=== PATIENT | male | born 1965 | race Two or more races ===

== ENCOUNTER 2016-07-17 11:28 | Inpatient (IN) | payer OTHER ==
[2016-07-17 13:55] VITALS: BMI 36.8
--- NOTE | 2016-07-17 14:39 | HP ---
CIWA Score - CIWA Score Nausea/Vomitin Muscle Tremors: 2 Anxiety: 3 Agitation: 3 Paroxysmal Sweats: 3 Orientation: 0-Oriented Tacttile Disturbances: 2-Mild Itch/Numbness/Burn Auditory Disturbances: 0-None Visual Disturbances: 0-None Headache: 1-Very Mild CIWA-Ar Total Score: 16 Admission ROS BHS - HPI Chief Complaint: I need help to stop alcohol and klonopin Allergies/Adverse Reactions: Allergies Allergy/AdvReac Type Severity Reaction Status Date / Time apple [Apple] Allergy Intermediate Rash Verified 07/14/12 17:01 fish derived Allergy Intermediate Rash Verified 07/14/12 17:01 No Known Drug Allergies Allergy Unknown Verified 07/14/12 21:21 History of Present Illness: 51 y/o m pt with a h/o chronic alcoholism and klonopin seeking detox. Exam Limitations: No Limitations - Ebola screening Have you traveled outside of the country in the last 21 days: No Have you had contact with anyone from an Ebola affected area: No Have you been sick,other than usual withdrawal symptoms: No - Review of Systems Constitutional: Malaise, Night Sweats, Changes in sleep EENT: reports: Dental Problems (edentulous) Respiratory: reports: No Symptoms reported Cardiac: reports: No Symptoms Reported GI: reports: Nausea, Indigestion : reports: Frequency Musculoskeletal: reports: Back Pain, Joint Pain (ankles), Muscle Pain Integumentary: reports: Other (stasis dermatitis rt lower extremity) Neuro: reports: Tremors Endocrine: reports: Increased Hunger, Increased Thirst, Increased Urine Hematology: reports: No Symptoms Reported Psychiatric: reports: Agitated, Anxious, Depressed Other Systems: Reviewed and Negative Patient History - Patient Medical History Hx Anemia: No Hx Asthma: Yes (PT IS ON MDI.) Hx Chronic Obstructive Pulmonary Disease (COPD): No Hx Cancer: No Hx Cardiac Disorders: No Hx Congestive Heart Failure: No Hx Hypertension: Yes (ON hctz 25mg/d) Hx Hypercholesterolemia: No Hx Pacemaker: No HX Cerebrovascular Accident: No Hx Seizures: No Hx Dementia: No Hx Diabetes: Yes (metformin 500mg /d) Hx Gastrointestinal Disorders: No Hx Liver Disease: No Hx Genitourinary Disorders: No Hx Sexually Transmitted Disorders: No Hx Renal Disease (ESRD): No Hx Thyroid Disease: No Hx Human Immunodeficiency Virus (HIV): No (negative 1 year ago) Hx Hepatitis C: No Hx Depression: Yes (celexa 20mg/d,abilify 30mg/d, hydroxyzine 25mg/d) Hx Suicide Attempt: No Hx Bipolar Disorder: No Hx Schizophrenia: No - Patient Surgical History Past Surgical History: No - PPD History Documented Results: Negative w/o proof Date: 07/16/12 PPD to be Administered?: Yes - Reproductive History Patient is a Female of Child Bearing Age (11 -55 yrs old): No - Smoking Cessation Smoking history: Current every day smoker Have you smoked in the past 12 months: Yes Aproximately how many cigarettes per day: 20 Cigars Per Day: 0 Hx Chewing Tobacco Use: No Initiated information on smoking cessation: Yes 'Breaking Loose' booklet given: 07/17/16 - Substance & Tx. History Hx Alcohol Use: Yes Substance Use Type: Cocaine, Tranquilizers Hx Substance Use Treatment: Yes - Substances Abused Alcohol Route: Oral Frequency: Daily Amount used: beer 40 oz x 3/d Age of first use: 17 Date of Last Use: 07/17/16 Benzodiazepine (Klonopin) Route: Oral Frequency: Daily Amount used: 4-6mg /d Age of first use: 50 Date of Last Use: 07/16/16 Family Disease History - Family Disease History Family Disease History: Other: Father (hiv ) Admission Physical Exam BHS - Vital Signs Vital Signs: Vital Signs - 24 hr 07/17/16 13:53 Temperature 96 F L Pulse Rate 77 Respiratory 20 Rate Blood Pressure 138/80 51 y/o m pt aox3 in nad ambulating cooperating with exam. - Physical General Appearance: Yes: Disheveled, Obese, Sweating, Anxious HEENTM: Yes: EOMI, Normal Voice, NICKY, Pharynx Normal, Other (edentulous) Respiratory: Yes: Chest Non-Tender, Lungs Clear, Normal Breath Sounds, No Respiratory Distress Neck: Yes: Supple, Trachea in good position Breast: Yes: Within Normal Limits Cardiology: Yes: Regular Rhythm, Regular Rate, S1, S2 Abdominal: Yes: Non Tender, Soft, Increased Bowel Sounds, Protuberent Back: Yes: Decreased Range of Motion Musculoskeletal: Yes: Back pain, Joint Stiffness, Muscle Pain Extremities: Yes: Tremors, Other (stasis dermatitis rt. + varicose veins) Neurological: Yes: emergency room orderly II-XII NML intact, Fully Oriented, Alert, Normal Response Integumentary: Yes: Moist Lymphatic: Yes: Within Normal Limits - Diagnostic (1) Alcohol dependence Current Visit: Yes Status: Chronic (2) DM Diabetes mellitus type 2 Current Visit: Yes Status: Chronic (3) Essential hypertension Current Visit: Yes Status: Chronic (4) Nicotine dependence Current Visit: Yes Status: Chronic (5) Obesity Current Visit: Yes Status: Chronic (6) mmtp Current Visit: No Status: Chronic (7) Benzodiazepine dependence, continuous Current Visit: Yes Status: Chronic (8) Varicose veins of legs Current Visit: Yes Status: Chronic (9) Venous stasis Current Visit: Yes Status: Chronic (10) Bipolar 1 disorder Current Visit: Yes Status: Chronic Cleared for Admission S - Detox or Rehab [facility] Level of Care: Medically Managed Detox Regimen/Protocol: Valium [facility] Breath Alcohol Content Breath Alcohol Content: 0.025 Urine Drug Screen - Results Drug Screen Negative: No Urine Drug Screen Results: KRISTINA-Cocaine, MTD-Methadone
[2016-07-17] MEDS ORDERED: hydrOXYzine PAMOATE 25 MG CAPSULE (FP) PO PRN (14:49)
[2016-07-17] MEDS ORDERED: MAG HYDROX/AL HYDROX/SIMETH 30 ML UNIT-DOSE CUP PO PRN (14:49)
[2016-07-17] MEDS ORDERED: MENTHOL/PHENOL 1 EACH UD MM PRN (14:49)
[2016-07-17] MEDS ORDERED: ACETAMINOPHEN 325 MG TABLET (FP) PO PRN (14:49)
[2016-07-17] MEDS ORDERED: diazePAM 5 MG TABLET PO PRN (14:49)
[2016-07-17] MEDS ORDERED: NICOTINE POLACRILEX 4 MG GUM BC PRN (14:49)
[2016-07-17] MEDS ORDERED: MAGNESIUM CITRATE 300 ML BOTTLE PO PRN (14:49)
[2016-07-17] MEDS ORDERED: IBUPROFEN 400 MG TABLET (FP) PO PRN (14:49)
[2016-07-17] MEDS ORDERED: MAGNESIUM HYDROX 2400MG/30ML ORAL SUSPENSION 30 ML CUP PO PRN (14:49)
[2016-07-17] MEDS ORDERED: LOPERAMIDE HCL 2 MG CAPSULE PO PRN (14:49)
[2016-07-17] MEDS ORDERED: P-EPHED 60MG/TRIPROLIDI 2.5MG TABLET PO PRN (14:49)
[2016-07-17] MEDS ORDERED: diphenhydrAMINE HCL 50 MG CAPSULE PO PRN (14:49)
[2016-07-17] MEDS ORDERED: guaiFENesin/D-METHORPHAN HB 10 ML UNIT-DOSE CUPS PO PRN (14:49)
[2016-07-17] MEDS ORDERED: ALBUTEROL SO4 6.7 GM HFA INHALER IH SCH (15:00)
[2016-07-17] MEDS ORDERED: ALBUTEROL SO4 6.7 GM HFA INHALER IH PRN (16:38)
[2016-07-17] MEDS ORDERED: diazePAM 5 MG TABLET PO ONE (17:00)
--- NOTE | 2016-07-17 18:13 | CONSULT ---
[facility] Psychiatric Consult - Data Date of interview: 07/17/16 Admission source: [facility] Identifying data: Readmission to [facility] for this 51 y/o male seeking detox treatmnet for opioid,alcohol and benzodiazepine (xanax) dependence.Patient is single,a father of one,domiciled,unemployed and supported on Welfare. Substance Abuse History: Smoking Cessation. Smoking history: Current every day smoker. Have you smoked in the past 12 months: Yes. Aproximately how many cigarettes per day: 20. Cigars Per Day: 0. Hx Chewing Tobacco Use: No. Initiated information on smoking cessation: Yes. 'Breaking Loose' booklet given : 07/17/16. - Substance & Tx. History. Hx Alcohol Use: Yes. Substance Use Type: Cocaine, Tranquilizers. Hx Substance Use Treatment: Yes. - Substances Abused. Alcohol. Route: Oral. Frequency: Daily. Amount used: beer 40 oz x 3/d. Age of first use: 17. Date of Last Use: 07/17/16. Benzodiazepine ( Klonopin). Route: Oral. Frequency: Daily. Amount used: 4-6mg /d. Age of first use: 50. Date of Last Use: 07/16/16. Confirmed by patient. Medical History: Bronchial asthma,diabetes mellitus,varicose veins,cellulitis, hypertension and arthritis. Psychiatric History: Patient admits to one psychiatric hospitalization at [facility] (2004).Diagnosed with " Bipolar Disorder and MDD ".Prescribed geodon 40 mg po bid + seroquel 100 mg/hs + ambien 10 mg/hs ( verified via survey of pharmacy claims of 07/08/16 @ [facility]) .Mr Lang indicates that he is currently on methadone maintenance (120 mg/day) at the [facility].He gets his outpatient psychiatric services at the [facility] in the [place].Patient reports history of one suicide attempt via hanging (1989). Physical/Sexual Abuse/Trauma History: Patient denies. Additional Comment: Urine Drug Screen Results: KRISTINA-Cocaine, MTD-Methadone.Noted. Mental Status Exam - Mental Status Exam Alert and Oriented to: Time, Place, Person Cognitive Function: Good Patient Appearance: Well Groomed (obese) Mood: Nervous, Withdrawn, Anxious Affect: Mood Congruent Patient Behavior: Fatigued, Appropriate, Cooperative Speech Pattern: Clear, Appropriate Voice Loudness: Normal Thought Process: Goal Oriented Thought Disorder: Not Present Hallucinations: Denies Suicidal Ideation: Denies Homicidal Ideation: Denies Insight/Judgement: Poor Sleep: Poorly, Difficulty falling asleep Appetite: Good Muscle strength/Tone: Normal Gait/Station: Normal Psychiatric Findings - Problem List ([place] 1, 2,3) (1) Alcohol dependence Current Visit: Yes Status: Acute (2) Benzodiazepine dependence, continuous Current Visit: Yes Status: Acute (3) Nicotine dependence Current Visit: Yes Status: Acute (4) Opioid dependence on agonist therapy Current Visit: Yes Status: Acute (5) Cocaine dependence Current Visit: Yes Status: Acute (6) Substance induced mood disorder Current Visit: Yes Status: Acute (7) Bipolar disorder Current Visit: Yes Status: Chronic Comment: History. (8) Essential hypertension Current Visit: Yes Status: Chronic (9) Obesity Current Visit: Yes Status: Chronic (10) Varicose veins of legs Current Visit: Yes Status: Chronic (11) Venous stasis Current Visit: Yes Status: Chronic (12) Asthma Current Visit: No Status: Active (13) Cellulitis Current Visit: Yes Status: Active (14) Insomnia Current Visit: Yes Status: Acute - Initial Treatment Plan Initial Treatment Plan: Psychoeducation.Detoxification.Medications : geodon 40 mg po bid + seroquel 50 mg po hs (reduced).Ambien not ordered (no justification) .Side effects/benefits discussed with patient.He agrees with this careplan.No scripts needed at discharge.Observation.
[2016-07-17] MEDS: THIAMINE HCL 100 MG TABLET (FP) PO SCH (22:16)
[2016-07-17] MEDS: diazePAM 5 MG TABLET PO SCH (22:16)
[2016-07-17] MEDS: QUEtiapine FUMARATE 50 MG TABLET PO SCH (22:17)
[2016-07-17] MEDS: ZIPRASIDONE 40 MG CAPSULE (FP) PO SCH (22:17)
[2016-07-18 03:03] LABS: URINE APPEARANCE CLEAR; URINE BILIRUBIN NEGATIVE (NEGATIVE); URINE BLOOD NEGATIVE (NEGATIVE); URINE COLOR DKYELLOW; URINE GLUCOSE (UA) NEGATIVE (NEGATIVE); URINE KETONE NEGATIVE (NEGATIVE); URINE LEUK ESTERASE NEGATIVE (NEGATIVE); URINE NITRITE NEGATIVE (NEGATIVE); URINE PROTEIN NEGATIVE (NEGATIVE); URINE UROBILINOGEN NEGATIVE E.U./dl (0.2-1.0)
[2016-07-18] MEDS: diazePAM 5 MG TABLET PO SCH ×3 (05:43→22:16)
[2016-07-18] MEDS ORDERED: METHADONE HCL 40 MG DISPERSABLE TABLET PO SCH (08:00)
[2016-07-18] MEDS: metFORMIN HCL 500 MG TABLET (FP) PO SCH (08:42)
[2016-07-18] MEDS: METHADONE HCL 40 MG DISPERSABLE TABLET PO SCH (08:42)
[2016-07-18 09:55] LABS: MCH 28.4 pg (25.7-33.7); MCHC 32.7 g/dl (32.0-35.9); MEAN CELL VOLUME 86.9 fl (80-96); MEAN PLT VOLUME 9.4 fl (7.5-11.1); PLATELET COUNT 246 K/MM3 (134-434); RDW 14.6 % (11.9-15.9); WHITE BLOOD COUNT 6.6 K/mm3 (4.0-10.0)
[2016-07-18] MEDS ORDERED: CITALOPRAM HYDROBROMIDE 20 MG TABLET (FP) PO SCH (10:00)
[2016-07-18 10:11] LABS: ALBUMIN 3.8 g/dl (3.4-5.0); ALK PHOS 78 U/L (45-117); ANION GAP 11 (8-16); BILIRUBIN,TOTAL 0.3 mg/dL (0.2-1.0); CALCIUM 9.4 mg/dL (8.5-10.1); CO2 27 mmol/L (21-32); COCKROFT - GAULT 170.27; CREATININE 0.7 mg/dL (0.7-1.3); GLUCOSE,RANDOM 75 mg/dL (74-106); SGOT/AST 31 U/L (15-37); SGPT/ALT 27 U/L (12-78); TOT PROT 7.9 g/dl (6.4-8.2)
[2016-07-18] MEDS: PRENATAL VITAMINS W/ FOLIC ACID TABLET (FP) PO SCH (10:18)
[2016-07-18] MEDS: NICOTINE 21 MG/24 HOURS TOPICAL PATCH TD SCH (10:18)
[2016-07-18] MEDS: ZIPRASIDONE 40 MG CAPSULE (FP) PO SCH ×2 (10:18→22:16)
[2016-07-18 11:52] LABS: HIV 1 & 2 AB NEGATIVE; HIV 1 AGp24 NEGATIVE
--- NOTE | 2016-07-18 12:34 | PN ---
[facility] CIWA - CIWA Score Nausea/Vomitin-No Nausea/No Vomiting Muscle Tremors: 4-Moderate,w/Arms Extend Anxiety: 2 Agitation: 2 Paroxysmal Sweats: 3 Orientation: 0-Oriented Tacttile Disturbances: 2-Mild Itch/Numbness/Burn Auditory Disturbances: 0-None Visual Disturbances: 3-Moderate Sensitivity Headache: 0-None Present CIWA-Ar Total Score: 16 S Progress Note (SOAP) Subjective: Tremors, Fatigue, Sweating. Objective: PT. A & O X 3, OBSERVED AMBULATING ON UNIT. 07/18/16 12:31 Vital Signs Temperature 97.4 F L 07/18/16 09:17 Pulse Rate 72 07/18/16 09:17 Respiratory Rate 18 07/18/16 09:17 Blood Pressure 135/77 07/18/16 09:17 O2 Sat by Pulse Oximetry (%) Laboratory Last Values WBC 6.6 K/mm3 (4.0-10.0) D 07/18/16 06:00 RBC 5.18 M/mm3 (4.00-5.60) 07/18/16 06:00 Hgb 14.7 GM/dL (11.7-16.9) 07/18/16 06:00 Hct 45.0 % (35.4-49) 07/18/16 06:00 MCV 86.9 fl (80-96) 07/18/16 06:00 MCHC 32.7 g/dl (32.0-35.9) 07/18/16 06:00 RDW 14.6 % (11.9-15.9) 07/18/16 06:00 Plt Count 246 K/MM3 (134-434) 07/18/16 06:00 MPV 9.4 fl (7.5-11.1) 07/18/16 06:00 Sodium 140 mmol/L (136-145) 07/18/16 06:00 Potassium 4.2 mmol/L (3.5-5.1) 07/18/16 06:00 Chloride 102 mmol/L (98-107) 07/18/16 06:00 Carbon Dioxide 27 mmol/L (21-32) 07/18/16 06:00 Anion Gap 11 (8-16) 07/18/16 06:00 BUN 5 mg/dL (7-18) L D 07/18/16 06:00 Creatinine 0.7 mg/dL (0.7-1.3) D 07/18/16 06:00 Creat Clearance w eGFR > 60 (>60) 07/18/16 06:00 POC Glucometer 104 UNITS (()) 07/18/16 05:42 Random Glucose 75 mg/dL (74-106) D 07/18/16 06:00 Calcium 9.4 mg/dL (8.5-10.1) 07/18/16 06:00 Total Bilirubin 0.3 mg/dL (0.2-1.0) 07/18/16 06:00 AST 31 U/L (15-37) 07/18/16 06:00 ALT 27 U/L (12-78) 07/18/16 06:00 Alkaline Phosphatase 78 U/L (45-117) 07/18/16 06:00 Total Protein 7.9 g/dl (6.4-8.2) 07/18/16 06:00 Albumin 3.8 g/dl (3.4-5.0) 07/18/16 06:00 Urine Color Dkyellow 07/17/16 22:57 Urine Appearance Clear 07/17/16 22:57 Urine pH 5.0 (5.0-8.0) 07/17/16 22:57 Ur Specific [place] 1.020 (1.005-1.025) 07/17/16 22:57 Urine Protein Negative (NEGATIVE) 07/17/16 22:57 Urine Glucose (UA) Negative (NEGATIVE) 07/17/16 22:57 Urine Ketones Negative (NEGATIVE) 07/17/16 22:57 Urine Blood Negative (NEGATIVE) 07/17/16 22:57 Urine Nitrite Negative (NEGATIVE) 07/17/16 22:57 Urine Bilirubin Negative (NEGATIVE) 07/17/16 22:57 Urine Urobilinogen Negative E.U./dl (0.2-1.0) 07/17/16 22:57 Ur Leukocyte Esterase Negative (NEGATIVE) 07/17/16 22:57 RPR Titer Nonreactive (NONREACTIVE) 07/18/16 06:00 HIV 1&2 Antibody Screen Negative 07/17/16 07:00 HIV P24 Antigen Negative 07/17/16 07:00 LABS NOTED. Assessment: 07/18/16 12:33 WITHDRAWAL SYMPTOMS. Plan: CONTINUE DETOX. ADVISED PATIENT TO FOLLOW-UP WITH [facility] AFTER DISCHARGE FROM DETOX FOR GENERAL MEDICAL ASSESSMENT AND FOR ABNORMAL ADMISSION LAB VALUES.
--- NOTE | 2016-07-18 12:50 | EKG ---
Test Reason : Blood Pressure : / mmHG Vent. Rate : 089 BPM Atrial Rate : 089 BPM P-R Int : 148 ms QRS Dur : 080 ms QT Int : 360 ms P-R-T Axes : 069 062 059 degrees QTc Int : 438 ms NORMAL SINUS RHYTHM NORMAL ECG NO PREVIOUS ECGS AVAILABLE Confirmed by YONIS SOTO MD ([id number]) on 07/18/2016 12:50:20 PM Referred By: Confirmed By:YONIS SOTO MD
[2016-07-18] MEDS: THIAMINE HCL 100 MG TABLET (FP) PO SCH (22:16)
[2016-07-18] MEDS: QUEtiapine FUMARATE 50 MG TABLET PO SCH (22:16)
[2016-07-19] MEDS: METHADONE HCL 40 MG DISPERSABLE TABLET PO SCH (06:02)
[2016-07-19] MEDS: metFORMIN HCL 500 MG TABLET (FP) PO SCH (06:40)
[2016-07-19] MEDS: ZIPRASIDONE 40 MG CAPSULE (FP) PO SCH ×2 (10:14→22:15)
[2016-07-19] MEDS: NICOTINE 21 MG/24 HOURS TOPICAL PATCH TD SCH (10:14)
[2016-07-19] MEDS: diazePAM 5 MG TABLET PO SCH ×2 (10:14→22:15)
[2016-07-19] MEDS: PRENATAL VITAMINS W/ FOLIC ACID TABLET (FP) PO SCH (10:14)
--- NOTE | 2016-07-19 13:00 | PN ---
S CIWA - CIWA Score Nausea/Vomitin Muscle Tremors: 4-Moderate,w/Arms Extend Anxiety: 3 Agitation: 2 Paroxysmal Sweats: 4-Forehead w/Sweat Beads Orientation: 0-Oriented Tacttile Disturbances: 0-None Auditory Disturbances: 2-Mild Harshness/Frighten Visual Disturbances: 2-Mild Sensitivity Headache: 0-None Present CIWA-Ar Total Score: 19 S Progress Note (SOAP) Subjective: Tremors, Sweating. Objective: PT. A & O X 3, OBSERVED AMBULATING ON UNIT WITH ASSISTANCE OF A CANE. 07/19/16 12:58 Vital Signs Temperature 99.1 F 07/19/16 10:05 Pulse Rate 74 07/19/16 10:05 Respiratory Rate 18 07/19/16 10:05 Blood Pressure 120/75 07/19/16 10:05 O2 Sat by Pulse Oximetry (%) Laboratory Last Values WBC 6.6 K/mm3 (4.0-10.0) D 07/18/16 06:00 RBC 5.18 M/mm3 (4.00-5.60) 07/18/16 06:00 Hgb 14.7 GM/dL (11.7-16.9) 07/18/16 06:00 Hct 45.0 % (35.4-49) 07/18/16 06:00 MCV 86.9 fl (80-96) 07/18/16 06:00 MCHC 32.7 g/dl (32.0-35.9) 07/18/16 06:00 RDW 14.6 % (11.9-15.9) 07/18/16 06:00 Plt Count 246 K/MM3 (134-434) 07/18/16 06:00 MPV 9.4 fl (7.5-11.1) 07/18/16 06:00 Sodium 140 mmol/L (136-145) 07/18/16 06:00 Potassium 4.2 mmol/L (3.5-5.1) 07/18/16 06:00 Chloride 102 mmol/L (98-107) 07/18/16 06:00 Carbon Dioxide 27 mmol/L (21-32) 07/18/16 06:00 Anion Gap 11 (8-16) 07/18/16 06:00 BUN 5 mg/dL (7-18) L D 07/18/16 06:00 Creatinine 0.7 mg/dL (0.7-1.3) D 07/18/16 06:00 Creat Clearance w eGFR > 60 (>60) 07/18/16 06:00 POC Glucometer 94 UNITS (()) 07/19/16 06:00 Random Glucose 75 mg/dL (74-106) D 07/18/16 06:00 Calcium 9.4 mg/dL (8.5-10.1) 07/18/16 06:00 Total Bilirubin 0.3 mg/dL (0.2-1.0) 07/18/16 06:00 AST 31 U/L (15-37) 07/18/16 06:00 ALT 27 U/L (12-78) 07/18/16 06:00 Alkaline Phosphatase 78 U/L (45-117) 07/18/16 06:00 Total Protein 7.9 g/dl (6.4-8.2) 07/18/16 06:00 Albumin 3.8 g/dl (3.4-5.0) 07/18/16 06:00 Urine Color Dkyellow 07/17/16 22:57 Urine Appearance Clear 07/17/16 22:57 Urine pH 5.0 (5.0-8.0) 07/17/16 22:57 Ur Specific [place] 1.020 (1.005-1.025) 07/17/16 22:57 Urine Protein Negative (NEGATIVE) 07/17/16 22:57 Urine Glucose (UA) Negative (NEGATIVE) 07/17/16 22:57 Urine Ketones Negative (NEGATIVE) 07/17/16 22:57 Urine Blood Negative (NEGATIVE) 07/17/16 22:57 Urine Nitrite Negative (NEGATIVE) 07/17/16 22:57 Urine Bilirubin Negative (NEGATIVE) 07/17/16 22:57 Urine Urobilinogen Negative E.U./dl (0.2-1.0) 07/17/16 22:57 Ur Leukocyte Esterase Negative (NEGATIVE) 07/17/16 22:57 RPR Titer Nonreactive (NONREACTIVE) 07/18/16 06:00 HIV 1&2 Antibody Screen Negative 07/17/16 07:00 HIV P24 Antigen Negative 07/17/16 07:00 LABS NOTED. Assessment: 07/19/16 12:59 WITHDRAWAL SYMPTOMS. Plan: CONTINUE DETOX. PATIENT ADVISED TO FOLLOW-UP WITH [facility]ESS OPERATOR AFTER DISCHARGE FROM DETOX FOR GENERAL MEDICAL ASSESSMENT AND FOR ABNORMAL ADMISSION LAB VALUES.
[2016-07-19] MEDS: THIAMINE HCL 100 MG TABLET (FP) PO SCH (22:15)
[2016-07-19] MEDS: QUEtiapine FUMARATE 50 MG TABLET PO SCH (22:15)
[2016-07-20] MEDS: METHADONE HCL 40 MG DISPERSABLE TABLET PO SCH (05:32)
[2016-07-20] MEDS: metFORMIN HCL 500 MG TABLET (FP) PO SCH (06:39)
[2016-07-20] MEDS: PRENATAL VITAMINS W/ FOLIC ACID TABLET (FP) PO SCH (10:18)
[2016-07-20] MEDS: diazePAM 5 MG TABLET PO SCH ×2 (10:18→22:02)
[2016-07-20] MEDS: ZIPRASIDONE 40 MG CAPSULE (FP) PO SCH ×2 (10:18→22:03)
[2016-07-20] MEDS: NICOTINE 21 MG/24 HOURS TOPICAL PATCH TD SCH (10:19)
--- NOTE | 2016-07-20 14:58 | PN ---
S Progress Note (SOAP) Subjective: Sweating, Interrupted sleep, Body aches. Objective: PT. A & O X 3, OBSERVED AMBULATING ON UNIT. 07/20/16 14:57 Vital Signs Temperature 97.3 F L 07/20/16 13:02 Pulse Rate 81 07/20/16 13:02 Respiratory Rate 20 07/20/16 13:02 Blood Pressure 117/69 07/20/16 13:02 O2 Sat by Pulse Oximetry (%) Laboratory Last Values WBC 6.6 K/mm3 (4.0-10.0) D 07/18/16 06:00 RBC 5.18 M/mm3 (4.00-5.60) 07/18/16 06:00 Hgb 14.7 GM/dL (11.7-16.9) 07/18/16 06:00 Hct 45.0 % (35.4-49) 07/18/16 06:00 MCV 86.9 fl (80-96) 07/18/16 06:00 MCHC 32.7 g/dl (32.0-35.9) 07/18/16 06:00 RDW 14.6 % (11.9-15.9) 07/18/16 06:00 Plt Count 246 K/MM3 (134-434) 07/18/16 06:00 MPV 9.4 fl (7.5-11.1) 07/18/16 06:00 Sodium 140 mmol/L (136-145) 07/18/16 06:00 Potassium 4.2 mmol/L (3.5-5.1) 07/18/16 06:00 Chloride 102 mmol/L (98-107) 07/18/16 06:00 Carbon Dioxide 27 mmol/L (21-32) 07/18/16 06:00 Anion Gap 11 (8-16) 07/18/16 06:00 BUN 5 mg/dL (7-18) L D 07/18/16 06:00 Creatinine 0.7 mg/dL (0.7-1.3) D 07/18/16 06:00 Creat Clearance w eGFR > 60 (>60) 07/18/16 06:00 POC Glucometer 91 UNITS (()) 07/20/16 05:31 Random Glucose 75 mg/dL (74-106) D 07/18/16 06:00 Calcium 9.4 mg/dL (8.5-10.1) 07/18/16 06:00 Total Bilirubin 0.3 mg/dL (0.2-1.0) 07/18/16 06:00 AST 31 U/L (15-37) 07/18/16 06:00 ALT 27 U/L (12-78) 07/18/16 06:00 Alkaline Phosphatase 78 U/L (45-117) 07/18/16 06:00 Total Protein 7.9 g/dl (6.4-8.2) 07/18/16 06:00 Albumin 3.8 g/dl (3.4-5.0) 07/18/16 06:00 Urine Color Dkyellow 07/17/16 22:57 Urine Appearance Clear 07/17/16 22:57 Urine pH 5.0 (5.0-8.0) 07/17/16 22:57 Ur Specific [place] 1.020 (1.005-1.025) 07/17/16 22:57 Urine Protein Negative (NEGATIVE) 07/17/16 22:57 Urine Glucose (UA) Negative (NEGATIVE) 07/17/16 22:57 Urine Ketones Negative (NEGATIVE) 07/17/16 22:57 Urine Blood Negative (NEGATIVE) 07/17/16 22:57 Urine Nitrite Negative (NEGATIVE) 07/17/16 22:57 Urine Bilirubin Negative (NEGATIVE) 07/17/16 22:57 Urine Urobilinogen Negative E.U./dl (0.2-1.0) 07/17/16 22:57 Ur Leukocyte Esterase Negative (NEGATIVE) 07/17/16 22:57 RPR Titer Nonreactive (NONREACTIVE) 07/18/16 06:00 HIV 1&2 Antibody Screen Negative 07/17/16 07:00 HIV P24 Antigen Negative 07/17/16 07:00 LABS NOTED. Assessment: 07/20/16 14:58 WITHDRAWAL SYMPTOMS. Plan: CONTINUE DETOX. ADVISED PATIENT TO FOLLOW-UP WITH [facility] AFTER DISCHARGE FROM DETOX FOR GENERAL MEDICAL ASSESSMENT AND FOR ABNORMAL ADMISSION LAB VALUES.
[2016-07-20] MEDS: THIAMINE HCL 100 MG TABLET (FP) PO SCH (22:03)
[2016-07-20] MEDS: QUEtiapine FUMARATE 50 MG TABLET PO SCH (22:03)
[2016-07-21] MEDS: METHADONE HCL 40 MG DISPERSABLE TABLET PO SCH (05:11)
[2016-07-21] MEDS: metFORMIN HCL 500 MG TABLET (FP) PO SCH (06:00)
[2016-07-21 06:30] VITALS: BP 122/73; PULSE 91; TEMP 96.5
[2016-07-21] MEDS ORDERED: diazePAM 5 MG TABLET PO SCH (10:00)
--- NOTE | 2016-07-21 15:32 | DS ---
[facility] Detox Discharge Summary Admission Date: 07/17/16 Discharge Date: 07/21/16 - History Present History: Alcohol Dependence, Sedative Dependence Additional Comments: ADVISED PATIENT TO FOLLOW-UP WITH [facility] AFTER DISCHARGE FROM DETOX FOR GENERAL MEDICAL ASSESSMENT AND FOR ABNORMAL ADMISSION LAB VALUES. Pertinent Past History: Asthma, HTN, DM, MMTP, Depression. - Physical Exam Results Vital Signs: Vital Signs Temperature 96.5 F L 07/21/16 06:30 Pulse Rate 91 H 07/21/16 06:30 Respiratory Rate 18 07/21/16 06:30 Blood Pressure 122/73 07/21/16 06:30 O2 Sat by Pulse Oximetry (%) Pertinent Admission Physical Exam Findings: WITHDRAWAL SYMPTOMS. Laboratory Last Values WBC 6.6 K/mm3 (4.0-10.0) D 07/18/16 06:00 RBC 5.18 M/mm3 (4.00-5.60) 07/18/16 06:00 Hgb 14.7 GM/dL (11.7-16.9) 07/18/16 06:00 Hct 45.0 % (35.4-49) 07/18/16 06:00 MCV 86.9 fl (80-96) 07/18/16 06:00 MCHC 32.7 g/dl (32.0-35.9) 07/18/16 06:00 RDW 14.6 % (11.9-15.9) 07/18/16 06:00 Plt Count 246 K/MM3 (134-434) 07/18/16 06:00 MPV 9.4 fl (7.5-11.1) 07/18/16 06:00 Sodium 140 mmol/L (136-145) 07/18/16 06:00 Potassium 4.2 mmol/L (3.5-5.1) 07/18/16 06:00 Chloride 102 mmol/L (98-107) 07/18/16 06:00 Carbon Dioxide 27 mmol/L (21-32) 07/18/16 06:00 Anion Gap 11 (8-16) 07/18/16 06:00 BUN 5 mg/dL (7-18) L D 07/18/16 06:00 Creatinine 0.7 mg/dL (0.7-1.3) D 07/18/16 06:00 Creat Clearance w eGFR > 60 (>60) 07/18/16 06:00 POC Glucometer 100 UNITS (()) 07/21/16 05:59 Random Glucose 75 mg/dL (74-106) D 07/18/16 06:00 Calcium 9.4 mg/dL (8.5-10.1) 07/18/16 06:00 Total Bilirubin 0.3 mg/dL (0.2-1.0) 07/18/16 06:00 AST 31 U/L (15-37) 07/18/16 06:00 ALT 27 U/L (12-78) 07/18/16 06:00 Alkaline Phosphatase 78 U/L (45-117) 07/18/16 06:00 Total Protein 7.9 g/dl (6.4-8.2) 07/18/16 06:00 Albumin 3.8 g/dl (3.4-5.0) 07/18/16 06:00 Urine Color Dkyellow 07/17/16 22:57 Urine Appearance Clear 07/17/16 22:57 Urine pH 5.0 (5.0-8.0) 07/17/16 22:57 Ur Specific [place] 1.020 (1.005-1.025) 07/17/16 22:57 Urine Protein Negative (NEGATIVE) 07/17/16 22:57 Urine Glucose (UA) Negative (NEGATIVE) 07/17/16 22:57 Urine Ketones Negative (NEGATIVE) 07/17/16 22:57 Urine Blood Negative (NEGATIVE) 07/17/16 22:57 Urine Nitrite Negative (NEGATIVE) 07/17/16 22:57 Urine Bilirubin Negative (NEGATIVE) 07/17/16 22:57 Urine Urobilinogen Negative E.U./dl (0.2-1.0) 07/17/16 22:57 Ur Leukocyte Esterase Negative (NEGATIVE) 07/17/16 22:57 RPR Titer Nonreactive (NONREACTIVE) 07/18/16 06:00 HIV 1&2 Antibody Screen Negative 07/17/16 07:00 HIV P24 Antigen Negative 07/17/16 07:00 LABS NOTED. - Treatment Hospital Course: Detox Protocol Followed, Detoxed Safely, Responded well, Discharged Condition Good Patient has Accepted a Rehab Referral to: YES - PT. WILL PURSUE ADMISSION AT [facility] AT A LATER DATE. - Medication Discharge Medications: Ambulatory Orders Albuterol Sulfate Inhaler - [Ventolin Hfa *Inhaler*] 2 inh IH Q4H PRN 07/14/12 Quetiapine Fumarate [Seroquel] 100 tab PO HS 07/17/16 Ziprasidone [Geodon] 40 mg PO BID 07/17/16 - Diagnosis (1) Asthma Status: Chronic (2) Insomnia Status: Chronic Qualifiers: Insomnia type: unspecified Qualified Code(s): G47.00 - Insomnia, unspecified (3) Nicotine dependence Status: Chronic (4) Opioid dependence on agonist therapy Status: Acute (5) Substance induced mood disorder Status: Acute (6) Bipolar disorder Status: Chronic Qualifiers: Active/Remission status: remission status unspecified Qualified Code (s): F31.9 - Bipolar disorder, unspecified (7) DM Diabetes mellitus type 2 Status: Chronic (8) Essential hypertension Status: Chronic (9) mmtp Status: Chronic (10) Obesity Status: Chronic (11) Varicose veins of legs Status: Chronic (12) Venous stasis Status: Chronic (13) Alcohol dependence with uncomplicated withdrawal Status: Acute - AMA Did Patient Leave Against Medical Advice: No
== END 2016-07-21 08:54 | disposition home or self-care (01) | DRG 773 ==
LOC: YASAS 11:28 → Y3N 16:36
PROVIDERS: ADMIT Internal Medicine Addiction Medicine; ATTEND Internal Medicine Addiction Medicine
PROC: HZ2ZZZZ Detoxification Services for Substance Abuse Treatment (ICD-10-PCS; principal; 2016-07-21)
DX: F11.20 Opioid dependence, uncomplicated (principal); F13.230 Sedative, hypnotic or anxiolytic dependence with withdrawal, uncomplicated; F19.24 Other psychoactive substance dependence with psychoactive substance-induced mood disorder; F31.9 Bipolar disorder, unspecified; F17.210 Nicotine dependence, cigarettes, uncomplicated; G47.00 Insomnia, unspecified; J45.20 Mild intermittent asthma, uncomplicated; E11.9 Type 2 diabetes mellitus without complications; Z79.84 Long term (current) use of oral hypoglycemic drugs; I83.10 Varicose veins of unspecified lower extremity with inflammation; E66.09 Other obesity due to excess calories; Z68.36 Body mass index [BMI] 36.0-36.9, adult
CPT/HCPCS: 36415; 80053; 81003; 85027; 86593; 87389; 93005; 93010

== ENCOUNTER 2020-04-18 14:48 | Inpatient (IN) | payer OTHER ==
[2020-04-18] MEDS ORDERED: SODIUM CHLORIDE 1,000 ML IV SCH (16:15)
[2020-04-18 16:46] LABS: BASO % 1.2 % (0-2.0); EOS % 4.1 % (0-4.5); HEMATOCRIT 39.1 % (35.4-49); HEMOGLOBIN 12.9 GM/dL (11.7-16.9); LYMPH % 51.8 % (8-40); MCH 28.1 pg (25.7-33.7); MEAN CELL VOLUME 85.3 fl (80-96); MEAN PLT VOLUME 8.2 fl (7.5-11.1); MONO % 11.3 % (3.8-10.2); NEUT % 31.6 % (42.8-82.8); PLATELET COUNT 265 K/MM3 (134-434); RBC 4.58 M/mm3 (4.00-5.60); RDW 14.7 % (11.9-15.9)
[2020-04-18 16:53] LABS: INR 0.99 (0.83-1.09)
[2020-04-18 17:05] LABS: CHLORIDE 107 mmol/L (98-107); SODIUM 141 mmol/L (136-145)
[2020-04-18] MEDS ORDERED: ASPIRIN 325 MG TABLET PO ONE (17:05)
[2020-04-18 17:10] LABS: ALBUMIN 3.4 g/dl (3.4-5.0); ANION GAP 2 MMOL/L (8-16); BLOOD UREA NITROGEN 11.4 mg/dL (7-18); CALCIUM 8.7 mg/dL (8.5-10.1); CO2 32 mmol/L (21-32); GLUCOSE,RANDOM 84 mg/dL (74-106)
[2020-04-18 17:13] LABS: CHOLESTEROL 161 mg/dL (50-200); CREATININE 0.7 mg/dL (0.55-1.3); SGOT/AST 16 U/L (15-37); SGPT/ALT 17 U/L (13-61)
[2020-04-18 17:14] LABS: LDL CHOLESTEROL (ONLY SJRH) 89 mg/dL (5-100); TRIGLYCERIDES 221 mg/dL (0-150)
[2020-04-18 17:15] LABS: BILIRUBIN,TOTAL 0.2 mg/dL (0.2-1); TOT PROT 6.8 g/dl (6.4-8.2)
[2020-04-18 17:16] LABS: ALK PHOS 58 U/L (45-117); HDL CHOLESTEROL 48 mg/dL (40-60)
[2020-04-18] MEDS ORDERED: ASPIRIN 325 MG ENTERIC COATED TABLET (FP) ONE (18:09)
[2020-04-18] MEDS ORDERED: ALBUTEROL SO4 HFA INHALER IH PRN (19:05)
[2020-04-18] MEDS ORDERED: ATORVASTATIN CA 80 MG TABLET (FP) PO SCH (22:00)
[2020-04-18] MEDS ORDERED: ZIPRASIDONE 20 MG CAPSULE PO SCH (22:00)
[2020-04-18] MEDS ORDERED: MONTELUKAST NA 10 MG TABLET PO SCH (22:00)
[2020-04-18] MEDS ORDERED: QUEtiapine FUMARATE 100 MG TABLET (FP) PO SCH (22:00)
[2020-04-18] MEDS ORDERED: ATORVASTATIN CA 80 MG TABLET (FP) ONE (22:58)
[2020-04-18] MEDS ORDERED: QUEtiapine FUMARATE 100 MG TABLET (FP) ONE (22:59)
[2020-04-18] MEDS ORDERED: MONTELUKAST NA 10 MG TABLET ONE (22:59)
[2020-04-19 04:07] VITALS: BMI 31.2
[2020-04-19] MEDS ORDERED: METHADONE HCL 40 MG DISPERSABLE TABLET PO ONE (08:06)
[2020-04-19] MEDS ORDERED: PT OWN MED DRAWER 7, Y5N ONE (09:19)
[2020-04-19] MEDS ORDERED: ASPIRIN 81 MG CHEWABLE TABLETS PO SCH (10:00)
[2020-04-19] MEDS ORDERED: ENOXAPARIN NA (PORCINE) 40 MG/0.4 ML DISP.SYRIN SQ SCH (10:00)
[2020-04-19 14:28] LABS: EPI CELLS 8 /uL (0-25.1); HYALINE CASTS 1 /uL (0-3.1); URINE APPEARANCE CLOUDY; URINE BACTERIA 48 /uL (0-1359); URINE BILIRUBIN NEGATIVE (NEGATIVE); URINE COLOR YELLOW; URINE GLUCOSE (UA) NEGATIVE (NEGATIVE); URINE KETONE NEGATIVE (NEGATIVE); URINE LEUK ESTERASE NEGATIVE (NEGATIVE); URINE NITRITE NEGATIVE (NEGATIVE); URINE PROTEIN NEGATIVE (NEGATIVE); URINE RBC 53 /uL (0-23.9); URINE UROBILINOGEN 0.2 mg/dL (0.2-1.0); URINE WBC 2 /uL (0-25.8)
[2020-04-19 15:09] LABS: URINE AMPHETAMINES NEGATIVE ng/ml (CUTOFF=500); URINE BARBITURATES NEGATIVE ng/ml (CUTOFF=200)
[2020-04-19 15:10] LABS: OPIATES, URI NEGATIVE ng/ml (CUTOFF=300); PHENCYCLIDINE,URINE NEGATIVE ng/ml (CUTOFF=25)
[2020-04-19 15:20] VITALS: BP 110/68; PULSE 66; TEMP 98.3
[2020-04-19 15:25] LABS: COCAINE, UR POSITIVE ng/ml (CUTOFF=300); URINE BENZODIAZEPINES POSITIVE ng/ml (CUTOFF=200)
[2020-04-19 15:26] LABS: METHADONE, UR POSITIVE ng/ml (CUTOFF=300)
[2020-04-20] MEDS ORDERED: METHADONE HCL 40 MG DISPERSABLE TABLET PO SCH (06:00)
== END 2020-04-19 16:51 | disposition other institution (70) | DRG 775 ==
LOC: JER 14:48 → JERBED 20:42 → J4W 04-19 00:07
PROVIDERS: ADMIT Internal Medicine; ATTEND Nurse Practitioner Acute Care
DX: F13.10 Sedative, hypnotic or anxiolytic abuse, uncomplicated (principal); F10.10 Alcohol abuse, uncomplicated; F32.9 Major depressive disorder, single episode, unspecified; F17.200 Nicotine dependence, unspecified, uncomplicated
CPT/HCPCS: 36415; 70450-TC; 70551-TC; 80053; 80061; 80307; 81003; 82550; 82962; 83721; 84484; 85025; 85610; 85730; 86850; 86900; 86901; 93005; 93010; 93880-TC; 97116-GP; 97161-GP; 99285-25; C9803; U0003

== ENCOUNTER 2020-04-19 17:04 | Inpatient (IN) | payer OTHER ==
[2020-04-19] MEDS ORDERED: LOPERAMIDE HCL 2 MG CAPSULE PO PRN ×2 (17:45→18:53)
[2020-04-19] MEDS ORDERED: guaiFENesin 200 MG/10 ML 10 ML UNIT-DOSE CUPS PO PRN ×2 (17:45→18:53)
[2020-04-19] MEDS ORDERED: ACETAMINOPHEN 325 MG TABLET (FP) PO PRN ×2 (17:45→18:53)
[2020-04-19] MEDS ORDERED: MAG HYDROX/AL HYDROX/SIMETH 30 ML UNIT-DOSE CUP PO PRN ×2 (17:45→18:53)
[2020-04-19] MEDS ORDERED: NICOTINE POLACRILEX 4 MG GUM BC PRN (17:45)
[2020-04-19] MEDS ORDERED: MAGNESIUM CITRATE 300 ML BOTTLE PO PRN ×2 (17:45→18:53)
[2020-04-19] MEDS ORDERED: P-EPHED 60MG/TRIPROLIDI 2.5MG TABLET PO PRN ×2 (17:45→18:53)
[2020-04-19] MEDS ORDERED: MAGNESIUM HYDROX 2400MG/30ML ORAL SUSPENSION 30 ML CUP PO PRN ×2 (17:45→18:53)
[2020-04-19] MEDS ORDERED: IBUPROFEN 400 MG TABLET (FP) PO PRN ×2 (17:45→18:53)
[2020-04-19] MEDS ORDERED: ALBUTEROL SO4 HFA INHALER IH PRN (17:49)
[2020-04-19 18:19] VITALS: BMI 32.1
[2020-04-19] MEDS ORDERED: NICOTINE POLACRILEX 2 MG GUM BC PRN (18:53)
[2020-04-19] MEDS: NICOTINE 21 MG/24 HOURS TOPICAL PATCH TD SCH (21:40)
[2020-04-19] MEDS ORDERED: ATORVASTATIN CA 40 MG TABLET (FP) ONE (21:52)
[2020-04-19] MEDS: MELATONIN 5 MG TABLETS PO SCH (21:53)
[2020-04-19] MEDS: THIAMINE HCL 100 MG TABLET (FP) PO SCH (21:53)
[2020-04-19] MEDS: ATORVASTATIN CA 80 MG TABLET (FP) PO SCH (21:53)
[2020-04-19] MEDS ORDERED: MELATONIN 5 MG TABLETS PO SCH (22:00)
[2020-04-19] MEDS ORDERED: QUEtiapine FUMARATE 100 MG TABLET (FP) PO SCH (22:00)
[2020-04-19] MEDS ORDERED: THIAMINE HCL 100 MG TABLET (FP) PO SCH (22:00)
[2020-04-19] MEDS: QUEtiapine FUMARATE 100 MG TABLET (FP) PO SCH (22:36)
[2020-04-19] MEDS: ZIPRASIDONE 20 MG CAPSULE PO SCH (23:45)
[2020-04-20] MEDS: METHADONE HCL 40 MG DISPERSABLE TABLET PO SCH (06:01)
[2020-04-20] MEDS ORDERED: PRENATAL VITAMINS W/ FOLIC ACID TABLET (FP) PO SCH (10:00)
[2020-04-20] MEDS ORDERED: NICOTINE 21 MG/24 HOURS TOPICAL PATCH TD SCH (10:00)
[2020-04-20] MEDS: PRENATAL VITAMINS W/ FOLIC ACID TABLET (FP) PO SCH (10:03)
[2020-04-20] MEDS: ZIPRASIDONE 20 MG CAPSULE PO SCH ×2 (10:03→21:07)
[2020-04-20] MEDS: MONTELUKAST NA 10 MG TABLET PO SCH (10:03)
[2020-04-20] MEDS: NICOTINE 21 MG/24 HOURS TOPICAL PATCH TD SCH (10:03)
[2020-04-20] MEDS: ASPIRIN 81 MG CHEWABLE TABLETS PO SCH (10:03)
[2020-04-20] MEDS ORDERED: PNEUMOCOCCAL 23 VACCINE 0.5 ML VIAL IM ONE (12:00)
[2020-04-20] MEDS ORDERED: FLU VACCINE (FLULAVAL) PF 60 MCG/0.5 ML SYRINGE 2020-2021 IM ONE (12:00)
[2020-04-20] MEDS ORDERED: PNEUMOC 13-VAL CONJ-DIP CRM/PF 0.5 ML DISP.SYRIN IM ONE (12:00)
[2020-04-20] MEDS ORDERED: PT OWN MED DRAWER 7, Y5N ONE (15:49)
[2020-04-20] MEDS: ATORVASTATIN CA 80 MG TABLET (FP) PO SCH (21:06)
[2020-04-20] MEDS: QUEtiapine FUMARATE 100 MG TABLET (FP) PO SCH (21:06)
[2020-04-20] MEDS: MELATONIN 5 MG TABLETS PO SCH (21:06)
[2020-04-20] MEDS: THIAMINE HCL 100 MG TABLET (FP) PO SCH (21:07)
[2020-04-20] MEDS ORDERED: QUEtiapine FUMARATE 100 MG TABLET (FP) PO SCH (22:00)
[2020-04-21] MEDS: METHADONE HCL 40 MG DISPERSABLE TABLET PO SCH (06:14)
[2020-04-21] MEDS: ZIPRASIDONE 20 MG CAPSULE PO SCH ×2 (11:45→22:00)
[2020-04-21] MEDS: NICOTINE 21 MG/24 HOURS TOPICAL PATCH TD SCH (11:45)
[2020-04-21] MEDS: ASPIRIN 81 MG CHEWABLE TABLETS PO SCH (11:45)
[2020-04-21] MEDS: PRENATAL VITAMINS W/ FOLIC ACID TABLET (FP) PO SCH (11:45)
[2020-04-21] MEDS: MONTELUKAST NA 10 MG TABLET PO SCH (11:46)
[2020-04-21] MEDS ORDERED: ATORVASTATIN CA 40 MG TABLET (FP) ONE (21:00)
[2020-04-21] MEDS: QUEtiapine FUMARATE 100 MG TABLET (FP) PO SCH (21:59)
[2020-04-21] MEDS: ATORVASTATIN CA 80 MG TABLET (FP) PO SCH (21:59)
[2020-04-21] MEDS: MELATONIN 5 MG TABLETS PO SCH (21:59)
[2020-04-21] MEDS: THIAMINE HCL 100 MG TABLET (FP) PO SCH (22:00)
[2020-04-22] MEDS: METHADONE HCL 40 MG DISPERSABLE TABLET PO SCH (05:50)
[2020-04-22] MEDS: NICOTINE 21 MG/24 HOURS TOPICAL PATCH TD SCH (10:00)
[2020-04-22] MEDS: MONTELUKAST NA 10 MG TABLET PO SCH (10:00)
[2020-04-22] MEDS: ASPIRIN 81 MG CHEWABLE TABLETS PO SCH (10:00)
[2020-04-22] MEDS: ZIPRASIDONE 20 MG CAPSULE PO SCH ×2 (10:00→21:10)
[2020-04-22] MEDS: PRENATAL VITAMINS W/ FOLIC ACID TABLET (FP) PO SCH (10:00)
[2020-04-22] MEDS ORDERED: ATORVASTATIN CA 40 MG TABLET (FP) ONE (19:21)
[2020-04-22] MEDS ORDERED: PT OWN MED DRAWER 7, Y5N ONE (19:22)
[2020-04-22] MEDS: MELATONIN 5 MG TABLETS PO SCH (21:10)
[2020-04-22] MEDS: THIAMINE HCL 100 MG TABLET (FP) PO SCH (21:10)
[2020-04-22] MEDS: QUEtiapine FUMARATE 100 MG TABLET (FP) PO SCH (21:10)
[2020-04-22] MEDS: ATORVASTATIN CA 80 MG TABLET (FP) PO SCH (21:11)
[2020-04-23] MEDS: METHADONE HCL 40 MG DISPERSABLE TABLET PO SCH (06:06)
[2020-04-23] MEDS: MONTELUKAST NA 10 MG TABLET PO SCH (09:53)
[2020-04-23] MEDS: PRENATAL VITAMINS W/ FOLIC ACID TABLET (FP) PO SCH (09:53)
[2020-04-23] MEDS: ASPIRIN 81 MG CHEWABLE TABLETS PO SCH (09:53)
[2020-04-23] MEDS: NICOTINE 21 MG/24 HOURS TOPICAL PATCH TD SCH (09:54)
[2020-04-23] MEDS: ZIPRASIDONE 20 MG CAPSULE PO SCH ×2 (09:54→21:52)
[2020-04-23] MEDS ORDERED: ATORVASTATIN CA 40 MG TABLET (FP) ONE (19:20)
[2020-04-23] MEDS: QUEtiapine FUMARATE 100 MG TABLET (FP) PO SCH (21:50)
[2020-04-23] MEDS: THIAMINE HCL 100 MG TABLET (FP) PO SCH (21:50)
[2020-04-23] MEDS: MELATONIN 5 MG TABLETS PO SCH (21:50)
[2020-04-23] MEDS ORDERED: QUEtiapine FUMARATE 50 MG TABLET ONE (21:51)
[2020-04-23] MEDS: ATORVASTATIN CA 80 MG TABLET (FP) PO SCH (21:52)
[2020-04-24] MEDS: METHADONE HCL 40 MG DISPERSABLE TABLET PO SCH (06:14)
[2020-04-24] MEDS: NICOTINE 21 MG/24 HOURS TOPICAL PATCH TD SCH (09:49)
[2020-04-24] MEDS: ZIPRASIDONE 20 MG CAPSULE PO SCH ×2 (09:49→21:27)
[2020-04-24] MEDS: PRENATAL VITAMINS W/ FOLIC ACID TABLET (FP) PO SCH (09:49)
[2020-04-24] MEDS: ASPIRIN 81 MG CHEWABLE TABLETS PO SCH (09:49)
[2020-04-24] MEDS: MONTELUKAST NA 10 MG TABLET PO SCH (09:49)
[2020-04-24] MEDS: PATIENT'S OWN MEDICATION (NON-FORMULARY) (Terbinafine Hcl [Terbinafine Hcl] 250 MG Tablet) PO SCH (09:50)
[2020-04-24] MEDS: CLOTRIMAZOLE/BETAMET DIPROP 15 GM TUBE TP SCH ×2 (12:24→21:27)
[2020-04-24] MEDS ORDERED: ATORVASTATIN CA 40 MG TABLET (FP) ONE (20:38)
[2020-04-24] MEDS: QUEtiapine FUMARATE 100 MG TABLET (FP) PO SCH (21:25)
[2020-04-24] MEDS: THIAMINE HCL 100 MG TABLET (FP) PO SCH (21:25)
[2020-04-24] MEDS: ATORVASTATIN CA 80 MG TABLET (FP) PO SCH (21:26)
[2020-04-24] MEDS: MELATONIN 5 MG TABLETS PO SCH (21:26)
[2020-04-25] MEDS: METHADONE HCL 40 MG DISPERSABLE TABLET PO SCH (06:06)
[2020-04-25] MEDS: CLOTRIMAZOLE/BETAMET DIPROP 15 GM TUBE TP SCH ×2 (10:02→21:26)
[2020-04-25] MEDS: ASPIRIN 81 MG CHEWABLE TABLETS PO SCH (10:02)
[2020-04-25] MEDS: NICOTINE 21 MG/24 HOURS TOPICAL PATCH TD SCH (10:02)
[2020-04-25] MEDS: PRENATAL VITAMINS W/ FOLIC ACID TABLET (FP) PO SCH (10:02)
[2020-04-25] MEDS: MONTELUKAST NA 10 MG TABLET PO SCH (10:03)
[2020-04-25] MEDS: ZIPRASIDONE 20 MG CAPSULE PO SCH ×2 (10:03→21:28)
[2020-04-25] MEDS: PATIENT'S OWN MEDICATION (NON-FORMULARY) (Terbinafine Hcl [Terbinafine Hcl] 250 MG Tablet) PO SCH (10:06)
[2020-04-25] MEDS ORDERED: ATORVASTATIN CA 40 MG TABLET (FP) ONE (19:25)
[2020-04-25] MEDS: THIAMINE HCL 100 MG TABLET (FP) PO SCH (21:25)
[2020-04-25] MEDS: MELATONIN 5 MG TABLETS PO SCH (21:26)
[2020-04-25] MEDS: ATORVASTATIN CA 80 MG TABLET (FP) PO SCH (21:26)
[2020-04-25] MEDS: QUEtiapine FUMARATE 100 MG TABLET (FP) PO SCH (21:26)
[2020-04-26] MEDS ORDERED: MASKS NR ONE (06:05)
[2020-04-26] MEDS: METHADONE HCL 40 MG DISPERSABLE TABLET PO SCH (06:15)
[2020-04-26] MEDS: PRENATAL VITAMINS W/ FOLIC ACID TABLET (FP) PO SCH (09:34)
[2020-04-26] MEDS: ZIPRASIDONE 20 MG CAPSULE PO SCH ×2 (09:34→21:04)
[2020-04-26] MEDS: ASPIRIN 81 MG CHEWABLE TABLETS PO SCH (09:34)
[2020-04-26] MEDS: NICOTINE 21 MG/24 HOURS TOPICAL PATCH TD SCH (09:35)
[2020-04-26] MEDS: PATIENT'S OWN MEDICATION (NON-FORMULARY) (Terbinafine Hcl [Terbinafine Hcl] 250 MG Tablet) PO SCH (09:35)
[2020-04-26] MEDS: MONTELUKAST NA 10 MG TABLET PO SCH (09:35)
[2020-04-26] MEDS: CLOTRIMAZOLE/BETAMET DIPROP 15 GM TUBE TP SCH ×2 (09:35→21:05)
[2020-04-26] MEDS ORDERED: ATORVASTATIN CA 40 MG TABLET (FP) ONE (19:16)
[2020-04-26] MEDS: QUEtiapine FUMARATE 100 MG TABLET (FP) PO SCH (21:04)
[2020-04-26] MEDS: THIAMINE HCL 100 MG TABLET (FP) PO SCH (21:04)
[2020-04-26] MEDS: ATORVASTATIN CA 80 MG TABLET (FP) PO SCH (21:05)
[2020-04-26] MEDS: MELATONIN 5 MG TABLETS PO SCH (21:05)
[2020-04-27] MEDS: METHADONE HCL 40 MG DISPERSABLE TABLET PO SCH (06:03)
[2020-04-27] MEDS: PRENATAL VITAMINS W/ FOLIC ACID TABLET (FP) PO SCH (09:58)
[2020-04-27] MEDS: ASPIRIN 81 MG CHEWABLE TABLETS PO SCH (09:59)
[2020-04-27] MEDS: NICOTINE 21 MG/24 HOURS TOPICAL PATCH TD SCH (09:59)
[2020-04-27] MEDS: CLOTRIMAZOLE/BETAMET DIPROP 15 GM TUBE TP SCH ×2 (10:00→21:20)
[2020-04-27] MEDS: PATIENT'S OWN MEDICATION (NON-FORMULARY) (Terbinafine Hcl [Terbinafine Hcl] 250 MG Tablet) PO SCH (10:00)
[2020-04-27] MEDS: MONTELUKAST NA 10 MG TABLET PO SCH (10:00)
[2020-04-27] MEDS: ZIPRASIDONE 20 MG CAPSULE PO SCH ×2 (10:00→21:19)
[2020-04-27] MEDS ORDERED: ATORVASTATIN CA 40 MG TABLET (FP) ONE (19:15)
[2020-04-27] MEDS: QUEtiapine FUMARATE 100 MG TABLET (FP) PO SCH (21:19)
[2020-04-27] MEDS: MELATONIN 5 MG TABLETS PO SCH (21:19)
[2020-04-27] MEDS: ATORVASTATIN CA 80 MG TABLET (FP) PO SCH (21:19)
[2020-04-27] MEDS: THIAMINE HCL 100 MG TABLET (FP) PO SCH (21:20)
[2020-04-28] MEDS: METHADONE HCL 40 MG DISPERSABLE TABLET PO SCH (06:15)
[2020-04-28] MEDS: ASPIRIN 81 MG CHEWABLE TABLETS PO SCH (09:50)
[2020-04-28] MEDS: PRENATAL VITAMINS W/ FOLIC ACID TABLET (FP) PO SCH (09:50)
[2020-04-28] MEDS: ZIPRASIDONE 20 MG CAPSULE PO SCH ×2 (09:50→21:15)
[2020-04-28] MEDS: NICOTINE 21 MG/24 HOURS TOPICAL PATCH TD SCH (09:50)
[2020-04-28] MEDS: CLOTRIMAZOLE/BETAMET DIPROP 15 GM TUBE TP SCH ×2 (09:50→21:16)
[2020-04-28] MEDS: PATIENT'S OWN MEDICATION (NON-FORMULARY) (Terbinafine Hcl [Terbinafine Hcl] 250 MG Tablet) PO SCH (09:51)
[2020-04-28] MEDS: MONTELUKAST NA 10 MG TABLET PO SCH (09:53)
[2020-04-28] MEDS: QUEtiapine FUMARATE 100 MG TABLET (FP) PO SCH (21:14)
[2020-04-28] MEDS: ATORVASTATIN CA 80 MG TABLET (FP) PO SCH (21:14)
[2020-04-28] MEDS: THIAMINE HCL 100 MG TABLET (FP) PO SCH (21:15)
[2020-04-28] MEDS: MELATONIN 5 MG TABLETS PO SCH (21:15)
[2020-04-29] MEDS: METHADONE HCL 40 MG DISPERSABLE TABLET PO SCH (06:09)
[2020-04-29] MEDS: PATIENT'S OWN MEDICATION (NON-FORMULARY) (Terbinafine Hcl [Terbinafine Hcl] 250 MG Tablet) PO SCH (09:44)
[2020-04-29] MEDS: NICOTINE 21 MG/24 HOURS TOPICAL PATCH TD SCH (09:44)
[2020-04-29] MEDS: PRENATAL VITAMINS W/ FOLIC ACID TABLET (FP) PO SCH (09:44)
[2020-04-29] MEDS: ZIPRASIDONE 20 MG CAPSULE PO SCH ×2 (09:45→21:30)
[2020-04-29] MEDS: MONTELUKAST NA 10 MG TABLET PO SCH (09:45)
[2020-04-29] MEDS: ASPIRIN 81 MG CHEWABLE TABLETS PO SCH (09:45)
[2020-04-29] MEDS: CLOTRIMAZOLE/BETAMET DIPROP 15 GM TUBE TP SCH ×2 (09:45→21:32)
[2020-04-29] MEDS ORDERED: ATORVASTATIN CA 40 MG TABLET (FP) ONE (20:21)
[2020-04-29] MEDS: ATORVASTATIN CA 80 MG TABLET (FP) PO SCH (21:30)
[2020-04-29] MEDS: QUEtiapine FUMARATE 100 MG TABLET (FP) PO SCH (21:30)
[2020-04-29] MEDS: MELATONIN 5 MG TABLETS PO SCH (21:31)
[2020-04-29] MEDS: THIAMINE HCL 100 MG TABLET (FP) PO SCH (21:31)
[2020-04-30] MEDS: METHADONE HCL 40 MG DISPERSABLE TABLET PO SCH (06:01)
[2020-04-30] MEDS: PRENATAL VITAMINS W/ FOLIC ACID TABLET (FP) PO SCH (09:42)
[2020-04-30] MEDS: NICOTINE 21 MG/24 HOURS TOPICAL PATCH TD SCH (09:43)
[2020-04-30] MEDS: ASPIRIN 81 MG CHEWABLE TABLETS PO SCH (09:43)
[2020-04-30] MEDS: ZIPRASIDONE 20 MG CAPSULE PO SCH ×2 (09:43→21:07)
[2020-04-30] MEDS: CLOTRIMAZOLE/BETAMET DIPROP 15 GM TUBE TP SCH ×2 (09:43→21:08)
[2020-04-30] MEDS: MONTELUKAST NA 10 MG TABLET PO SCH (09:43)
[2020-04-30] MEDS: PATIENT'S OWN MEDICATION (NON-FORMULARY) (Terbinafine Hcl [Terbinafine Hcl] 250 MG Tablet) PO SCH (09:44)
[2020-04-30] MEDS ORDERED: ATORVASTATIN CA 40 MG TABLET (FP) ONE (19:32)
[2020-04-30] MEDS ORDERED: PT OWN MED DRAWER 7, Y5N ONE (19:37)
[2020-04-30] MEDS: THIAMINE HCL 100 MG TABLET (FP) PO SCH (21:07)
[2020-04-30] MEDS: QUEtiapine FUMARATE 100 MG TABLET (FP) PO SCH (21:07)
[2020-04-30] MEDS: MELATONIN 5 MG TABLETS PO SCH (21:08)
[2020-04-30] MEDS: ATORVASTATIN CA 80 MG TABLET (FP) PO SCH (21:08)
[2020-05-01] MEDS: METHADONE HCL 40 MG DISPERSABLE TABLET PO SCH (06:12)
[2020-05-01] MEDS: MONTELUKAST NA 10 MG TABLET PO SCH (09:48)
[2020-05-01] MEDS: PRENATAL VITAMINS W/ FOLIC ACID TABLET (FP) PO SCH (09:48)
[2020-05-01] MEDS: ASPIRIN 81 MG CHEWABLE TABLETS PO SCH (09:48)
[2020-05-01] MEDS: ZIPRASIDONE 20 MG CAPSULE PO SCH ×2 (09:48→21:43)
[2020-05-01] MEDS: PATIENT'S OWN MEDICATION (NON-FORMULARY) (Terbinafine Hcl [Terbinafine Hcl] 250 MG Tablet) PO SCH (09:49)
[2020-05-01] MEDS: CLOTRIMAZOLE/BETAMET DIPROP 15 GM TUBE TP SCH (09:50)
[2020-05-01] MEDS: NICOTINE 21 MG/24 HOURS TOPICAL PATCH TD SCH (09:50)
[2020-05-01] MEDS: THIAMINE HCL 100 MG TABLET (FP) PO SCH (21:42)
[2020-05-01] MEDS: ATORVASTATIN CA 80 MG TABLET (FP) PO SCH (21:42)
[2020-05-01] MEDS: QUEtiapine FUMARATE 100 MG TABLET (FP) PO SCH (21:42)
[2020-05-01] MEDS: MELATONIN 5 MG TABLETS PO SCH (21:42)
[2020-05-02] MEDS: METHADONE HCL 40 MG DISPERSABLE TABLET PO SCH (06:00)
[2020-05-02] MEDS: PRENATAL VITAMINS W/ FOLIC ACID TABLET (FP) PO SCH (09:45)
[2020-05-02] MEDS: ZIPRASIDONE 20 MG CAPSULE PO SCH ×2 (09:45→21:07)
[2020-05-02] MEDS: NICOTINE 21 MG/24 HOURS TOPICAL PATCH TD SCH (09:45)
[2020-05-02] MEDS: ASPIRIN 81 MG CHEWABLE TABLETS PO SCH (09:46)
[2020-05-02] MEDS: MONTELUKAST NA 10 MG TABLET PO SCH (09:46)
[2020-05-02] MEDS: PATIENT'S OWN MEDICATION (NON-FORMULARY) (Terbinafine Hcl [Terbinafine Hcl] 250 MG Tablet) PO SCH (09:46)
[2020-05-02] MEDS: ATORVASTATIN CA 80 MG TABLET (FP) PO SCH (21:07)
[2020-05-02] MEDS: THIAMINE HCL 100 MG TABLET (FP) PO SCH (21:07)
[2020-05-02] MEDS: QUEtiapine FUMARATE 100 MG TABLET (FP) PO SCH (21:07)
[2020-05-02] MEDS: MELATONIN 5 MG TABLETS PO SCH (21:07)
[2020-05-03] MEDS: METHADONE HCL 40 MG DISPERSABLE TABLET PO SCH (05:54)
[2020-05-03 06:53] VITALS: BP 114/72; PULSE 64; TEMP 97.5
[2020-05-03] MEDS: PRENATAL VITAMINS W/ FOLIC ACID TABLET (FP) PO SCH (09:11)
[2020-05-03] MEDS: MONTELUKAST NA 10 MG TABLET PO SCH (09:12)
[2020-05-03] MEDS: ZIPRASIDONE 20 MG CAPSULE PO SCH (09:12)
[2020-05-03] MEDS: ASPIRIN 81 MG CHEWABLE TABLETS PO SCH (09:12)
[2020-05-03] MEDS: PATIENT'S OWN MEDICATION (NON-FORMULARY) (Terbinafine Hcl [Terbinafine Hcl] 250 MG Tablet) PO SCH (09:12)
[2020-05-03] MEDS: NICOTINE 21 MG/24 HOURS TOPICAL PATCH TD SCH (09:12)
[2020-05-04] MEDS ORDERED: METHADONE HCL 40 MG DISPERSABLE TABLET PO SCH (06:00)
== END 2020-05-03 09:20 | disposition home or self-care (01) | DRG 772 ==
LOC: YASAS 17:04 → Y3W 19:01
PROVIDERS: ADMIT Allergy & Immunology; ATTEND Allergy & Immunology
PROC: HZ42ZZZ Group Counseling for Substance Abuse Treatment, Cognitive-Behavioral (ICD-10-PCS; principal; 2020-04-19)
DX: F10.20 Alcohol dependence, uncomplicated (principal); F14.20 Cocaine dependence, uncomplicated; F11.20 Opioid dependence, uncomplicated; F17.210 Nicotine dependence, cigarettes, uncomplicated; F19.282 Other psychoactive substance dependence with psychoactive substance-induced sleep disorder; F31.9 Bipolar disorder, unspecified; F41.8 Other specified anxiety disorders; G40.509 Epileptic seizures related to external causes, not intractable, without status epilepticus; I10 Essential (primary) hypertension; E78.5 Hyperlipidemia, unspecified; E11.9 Type 2 diabetes mellitus without complications; I83.91 Asymptomatic varicose veins of right lower extremity; B36.8 Other specified superficial mycoses; M12.9 Arthropathy, unspecified; E66.9 Obesity, unspecified; Z68.32 Body mass index [BMI] 32.0-32.9, adult; Z86.73 Personal history of transient ischemic attack (TIA), and cerebral infarction without residual deficits; Z59.0 Homelessness; Z91.013 Allergy to seafood; Z91.018 Allergy to other foods; Z56.0 Unemployment, unspecified
CPT/HCPCS: 36415; 86780; 90732; C9803; G0008; G0009; Q2036; U0003

== ENCOUNTER 2021-04-18 14:18 | Inpatient (IN) | payer OTHER ==
[2021-04-18] MEDS ORDERED: ACETAMINOPHEN 325 MG TABLET (FP) PO PRN (16:58)
[2021-04-18] MEDS ORDERED: IBUPROFEN 400 MG TABLET (FP) PO PRN (16:58)
[2021-04-18] MEDS ORDERED: P-EPHED 60MG/TRIPROLIDI 2.5MG TABLET PO PRN (16:58)
[2021-04-18] MEDS ORDERED: guaiFENesin 200 MG/10 ML 10 ML UNIT-DOSE CUPS PO PRN (16:58)
[2021-04-18] MEDS ORDERED: MAGNESIUM CITRATE 300 ML BOTTLE PO PRN (16:58)
[2021-04-18] MEDS ORDERED: LOPERAMIDE HCL 2 MG CAPSULE PO PRN (16:58)
[2021-04-18] MEDS ORDERED: MONTELUKAST NA 10 MG TABLET PO PRN (17:01)
[2021-04-18 18:16] VITALS: BMI 34.8
[2021-04-18] MEDS: hydrOXYzine PAMOATE 25 MG CAPSULE (FP) PO SCH ×2 (22:00→22:04)
[2021-04-18] MEDS: THIAMINE HCL 100 MG TABLET (FP) PO SCH (22:00)
[2021-04-18] MEDS ORDERED: MELATONIN 5 MG TABLETS PO SCH (22:00)
[2021-04-18] MEDS ORDERED: TUBERCULIN PPD 5 TU/0.1ML VIAL ID ONE (22:02)
[2021-04-19] MEDS: hydrOXYzine PAMOATE 25 MG CAPSULE (FP) PO SCH ×5 (06:39→21:16)
[2021-04-19] MEDS ORDERED: methaDONE HCL 10 MG TABLET PO ONE (08:40)
[2021-04-19] MEDS ORDERED: methaDONE 80 MG, methaDONE 20 MG PO ONE (09:00)
[2021-04-19] MEDS ORDERED: methaDONE HCL 40 MG DISPERSABLE TABLET ONE (09:20)
[2021-04-19] MEDS ORDERED: methaDONE HCL 10 MG TABLET ONE (09:20)
[2021-04-19] MEDS: PRENATAL VITAMINS W/ FOLIC ACID TABLET (FP) PO SCH (10:07)
[2021-04-19] MEDS: NICOTINE 7 MG/24 HOURS TOPICAL PATCH TD SCH (10:07)
[2021-04-19] MEDS: ASPIRIN 81 MG CHEWABLE TABLETS PO SCH (10:08)
[2021-04-19 10:46] LABS: URINE APPEARANCE CLEAR; URINE BILIRUBIN NEGATIVE (NEGATIVE); URINE COLOR DK YELLOW; URINE GLUCOSE (UA) NEGATIVE (NEGATIVE); URINE KETONE TRACE (NEGATIVE); URINE LEUK ESTERASE NEGATIVE (NEGATIVE); URINE NITRITE NEGATIVE (NEGATIVE); URINE PROTEIN NEGATIVE (NEGATIVE); URINE UROBILINOGEN 0.2 mg/dL (0.2-1.0)
[2021-04-19 10:47] LABS: HEMATOCRIT 41.1 % (35.4-49); HEMOGLOBIN 13.6 GM/dL (11.7-16.9); MCH 28.6 pg (25.7-33.7); MEAN CELL VOLUME 86.6 fl (80-96); MEAN PLT VOLUME 8.8 fl (7.5-11.1); PLATELET COUNT 194 10^3/uL (134-434); RBC 4.75 M/mm3 (4.00-5.60); RDW 15.9 % (11.9-15.9); WHITE BLOOD COUNT 5.2 K/mm3 (4.0-10.0)
[2021-04-19 10:49] LABS: ALBUMIN 3.5 g/dl (3.4-5.0)
[2021-04-19 10:50] LABS: BLOOD UREA NITROGEN 10.1 mg/dL (7-18)
[2021-04-19 10:51] LABS: CALCIUM 8.8 mg/dL (8.5-10.1)
[2021-04-19 10:53] LABS: CREATININE 0.8 mg/dL (0.55-1.3)
[2021-04-19 10:54] LABS: BILIRUBIN,TOTAL 0.3 mg/dL (0.2-1)
[2021-04-19 10:55] LABS: TOT PROT 7.3 g/dl (6.4-8.2)
[2021-04-19 11:38] LABS: SYPHILIS W/ RPR CONF NON-REACTIVE (NONREACTIVE)
[2021-04-19] MEDS: THIAMINE HCL 100 MG TABLET (FP) PO SCH (21:16)
[2021-04-19] MEDS: ZIPRASIDONE 40 MG CAPSULE PO SCH (21:16)
[2021-04-19] MEDS: QUEtiapine FUMARATE 400 MG TABLET PO SCH (21:17)
[2021-04-20] MEDS ORDERED: methaDONE HCL 10 MG TABLET ONE (04:09)
[2021-04-20] MEDS ORDERED: methaDONE HCL 40 MG DISPERSABLE TABLET ONE (04:09)
[2021-04-20] MEDS ORDERED: methaDONE HCL 10 MG TABLET PO SCH (06:00)
[2021-04-20] MEDS: methaDONE 80 MG, methaDONE 20 MG PO SCH (06:21)
[2021-04-20] MEDS: hydrOXYzine PAMOATE 25 MG CAPSULE (FP) PO SCH ×2 (06:21→10:50)
[2021-04-20] MEDS ORDERED: hydrOXYzine PAMOATE 25 MG CAPSULE (FP) PO PRN (10:06)
[2021-04-20] MEDS ORDERED: ALBUTEROL SO4 HFA INHALER IH PRN (10:06)
[2021-04-20] MEDS: ASPIRIN 81 MG CHEWABLE TABLETS PO SCH (10:48)
[2021-04-20] MEDS: PRENATAL VITAMINS W/ FOLIC ACID TABLET (FP) PO SCH (10:48)
[2021-04-20] MEDS: NICOTINE 7 MG/24 HOURS TOPICAL PATCH TD SCH (10:49)
[2021-04-20] MEDS: NICOTINE 10 MG CARTRIDGE (INHALER) IH PRN (10:50)
[2021-04-20] MEDS: THIAMINE HCL 100 MG TABLET (FP) PO SCH (21:12)
[2021-04-20] MEDS ORDERED: ATORVASTATIN CA 40 MG TABLET (FP) ONE (21:13)
[2021-04-20] MEDS: ZIPRASIDONE 40 MG CAPSULE PO SCH (21:13)
[2021-04-20] MEDS: QUEtiapine FUMARATE 400 MG TABLET PO SCH (21:13)
[2021-04-20] MEDS: ATORVASTATIN CA 80 MG TABLET (FP) PO SCH (21:13)
[2021-04-21] MEDS ORDERED: methaDONE HCL 10 MG TABLET ONE (02:58)
[2021-04-21] MEDS ORDERED: methaDONE HCL 40 MG DISPERSABLE TABLET ONE (02:58)
[2021-04-21] MEDS: methaDONE 80 MG, methaDONE 20 MG PO SCH (06:02)
[2021-04-21] MEDS: PRENATAL VITAMINS W/ FOLIC ACID TABLET (FP) PO SCH (09:47)
[2021-04-21] MEDS: NICOTINE 10 MG CARTRIDGE (INHALER) IH PRN (09:47)
[2021-04-21] MEDS: NICOTINE 7 MG/24 HOURS TOPICAL PATCH TD SCH (09:47)
[2021-04-21] MEDS: ASPIRIN 81 MG CHEWABLE TABLETS PO SCH (09:47)
[2021-04-21 14:11] LABS: SARS-CoV-2 NAA Not Detected (Not Detected)
[2021-04-21] MEDS: MAG HYDROX/AL HYDROX/SIMETH 30 ML UNIT-DOSE CUP PO PRN (15:06)
[2021-04-21] MEDS: QUEtiapine FUMARATE 400 MG TABLET PO SCH (21:46)
[2021-04-21] MEDS: ZIPRASIDONE 40 MG CAPSULE PO SCH (21:46)
[2021-04-21] MEDS: ATORVASTATIN CA 80 MG TABLET (FP) PO SCH (21:46)
[2021-04-21] MEDS: THIAMINE HCL 100 MG TABLET (FP) PO SCH (21:47)
[2021-04-22] MEDS ORDERED: methaDONE HCL 40 MG DISPERSABLE TABLET ONE (02:51)
[2021-04-22] MEDS ORDERED: methaDONE HCL 10 MG TABLET ONE (02:51)
[2021-04-22] MEDS: methaDONE 80 MG, methaDONE 20 MG PO SCH (06:10)
[2021-04-22] MEDS: PRENATAL VITAMINS W/ FOLIC ACID TABLET (FP) PO SCH (10:11)
[2021-04-22] MEDS: ASPIRIN 81 MG CHEWABLE TABLETS PO SCH (10:11)
[2021-04-22] MEDS: NICOTINE 7 MG/24 HOURS TOPICAL PATCH TD SCH (10:12)
[2021-04-22] MEDS ORDERED: ATORVASTATIN CA 40 MG TABLET (FP) ONE (18:36)
[2021-04-22] MEDS: ZIPRASIDONE 40 MG CAPSULE PO SCH (21:23)
[2021-04-22] MEDS: QUEtiapine FUMARATE 400 MG TABLET PO SCH (21:23)
[2021-04-22] MEDS: THIAMINE HCL 100 MG TABLET (FP) PO SCH (21:24)
[2021-04-22] MEDS: ATORVASTATIN CA 80 MG TABLET (FP) PO SCH (21:24)
[2021-04-23] MEDS ORDERED: methaDONE HCL 10 MG TABLET ONE (02:53)
[2021-04-23] MEDS ORDERED: methaDONE HCL 40 MG DISPERSABLE TABLET ONE (02:53)
[2021-04-23] MEDS: methaDONE 80 MG, methaDONE 20 MG PO SCH (06:15)
[2021-04-23] MEDS: NICOTINE 7 MG/24 HOURS TOPICAL PATCH TD SCH (10:16)
[2021-04-23] MEDS: PRENATAL VITAMINS W/ FOLIC ACID TABLET (FP) PO SCH (10:16)
[2021-04-23] MEDS: ASPIRIN 81 MG CHEWABLE TABLETS PO SCH (10:16)
[2021-04-23] MEDS: NICOTINE 10 MG CARTRIDGE (INHALER) IH PRN (10:17)
[2021-04-23] MEDS: NICOTINE 21 MG/24 HOURS TOPICAL PATCH TD SCH (12:00)
[2021-04-23] MEDS ORDERED: ATORVASTATIN CA 40 MG TABLET (FP) ONE (18:56)
[2021-04-23] MEDS: QUEtiapine FUMARATE 400 MG TABLET PO SCH (21:17)
[2021-04-23] MEDS: THIAMINE HCL 100 MG TABLET (FP) PO SCH (21:17)
[2021-04-23] MEDS: ATORVASTATIN CA 80 MG TABLET (FP) PO SCH (21:17)
[2021-04-23] MEDS: ZIPRASIDONE 40 MG CAPSULE PO SCH (21:17)
[2021-04-24] MEDS ORDERED: methaDONE HCL 10 MG TABLET ONE (05:12)
[2021-04-24] MEDS ORDERED: methaDONE HCL 40 MG DISPERSABLE TABLET ONE (05:12)
[2021-04-24] MEDS: methaDONE 80 MG, methaDONE 20 MG PO SCH (05:43)
[2021-04-24] MEDS: NICOTINE 21 MG/24 HOURS TOPICAL PATCH TD SCH (09:51)
[2021-04-24] MEDS: PRENATAL VITAMINS W/ FOLIC ACID TABLET (FP) PO SCH (09:51)
[2021-04-24] MEDS: ASPIRIN 81 MG CHEWABLE TABLETS PO SCH (09:51)
[2021-04-24] MEDS ORDERED: ATORVASTATIN CA 40 MG TABLET (FP) ONE (18:42)
[2021-04-24] MEDS: QUEtiapine FUMARATE 400 MG TABLET PO SCH (21:09)
[2021-04-24] MEDS: ATORVASTATIN CA 80 MG TABLET (FP) PO SCH (21:09)
[2021-04-24] MEDS: ZIPRASIDONE 40 MG CAPSULE PO SCH (21:09)
[2021-04-24] MEDS: THIAMINE HCL 100 MG TABLET (FP) PO SCH (21:09)
[2021-04-25] MEDS ORDERED: methaDONE HCL 10 MG TABLET ONE (05:41)
[2021-04-25] MEDS ORDERED: methaDONE HCL 40 MG DISPERSABLE TABLET ONE (05:41)
[2021-04-25] MEDS: methaDONE 80 MG, methaDONE 20 MG PO SCH (06:02)
[2021-04-25] MEDS: NICOTINE 21 MG/24 HOURS TOPICAL PATCH TD SCH (10:05)
[2021-04-25] MEDS: ASPIRIN 81 MG CHEWABLE TABLETS PO SCH (10:05)
[2021-04-25] MEDS: PRENATAL VITAMINS W/ FOLIC ACID TABLET (FP) PO SCH (10:06)
[2021-04-25] MEDS: NICOTINE 10 MG CARTRIDGE (INHALER) IH PRN (10:07)
[2021-04-25] MEDS: MAGNESIUM HYDROX 2400MG/30ML ORAL SUSPENSION 30 ML CUP PO PRN ×2 (10:11→21:14)
[2021-04-25 12:05] LABS: SARS-CoV-2 NAA Not Detected
[2021-04-25] MEDS ORDERED: ATORVASTATIN CA 40 MG TABLET (FP) ONE (18:36)
[2021-04-25] MEDS: QUEtiapine FUMARATE 400 MG TABLET PO SCH (21:13)
[2021-04-25] MEDS: ZIPRASIDONE 40 MG CAPSULE PO SCH (21:13)
[2021-04-25] MEDS: THIAMINE HCL 100 MG TABLET (FP) PO SCH (21:13)
[2021-04-25] MEDS: ATORVASTATIN CA 80 MG TABLET (FP) PO SCH (21:14)
[2021-04-25] MEDS: FLUOCINONIDE 0.05% TOP OINT (60 GM TUBE) TP SCH (21:15)
[2021-04-26] MEDS ORDERED: methaDONE HCL 40 MG DISPERSABLE TABLET ONE (04:46)
[2021-04-26] MEDS ORDERED: methaDONE HCL 10 MG TABLET ONE (04:46)
[2021-04-26] MEDS: methaDONE 80 MG, methaDONE 20 MG PO SCH (05:45)
[2021-04-26] MEDS: NICOTINE 10 MG CARTRIDGE (INHALER) IH PRN (10:06)
[2021-04-26] MEDS: PRENATAL VITAMINS W/ FOLIC ACID TABLET (FP) PO SCH (10:06)
[2021-04-26] MEDS: ASPIRIN 81 MG CHEWABLE TABLETS PO SCH (10:06)
[2021-04-26] MEDS: NICOTINE 21 MG/24 HOURS TOPICAL PATCH TD SCH (10:07)
[2021-04-26] MEDS: FLUOCINONIDE 0.05% TOP OINT (60 GM TUBE) TP SCH ×2 (10:07→21:15)
[2021-04-26] MEDS: MAGNESIUM HYDROX 2400MG/30ML ORAL SUSPENSION 30 ML CUP PO PRN (14:10)
[2021-04-26] MEDS: MAG HYDROX/AL HYDROX/SIMETH 30 ML UNIT-DOSE CUP PO PRN ×2 (14:10→21:16)
[2021-04-26] MEDS: ZIPRASIDONE 40 MG CAPSULE PO SCH (21:14)
[2021-04-26] MEDS: ATORVASTATIN CA 80 MG TABLET (FP) PO SCH (21:14)
[2021-04-26] MEDS: THIAMINE HCL 100 MG TABLET (FP) PO SCH (21:15)
[2021-04-26] MEDS: QUEtiapine FUMARATE 400 MG TABLET PO SCH (21:15)
[2021-04-27] MEDS ORDERED: methaDONE HCL 10 MG TABLET ONE (04:02)
[2021-04-27] MEDS ORDERED: methaDONE HCL 40 MG DISPERSABLE TABLET ONE (04:03)
[2021-04-27] MEDS: methaDONE 80 MG, methaDONE 20 MG PO SCH (06:03)
[2021-04-27] MEDS: ASPIRIN 81 MG CHEWABLE TABLETS PO SCH (10:25)
[2021-04-27] MEDS: FLUOCINONIDE 0.05% TOP OINT (60 GM TUBE) TP SCH ×2 (10:25→22:02)
[2021-04-27] MEDS: NICOTINE 21 MG/24 HOURS TOPICAL PATCH TD SCH (10:25)
[2021-04-27] MEDS: PRENATAL VITAMINS W/ FOLIC ACID TABLET (FP) PO SCH (10:27)
[2021-04-27] MEDS: NICOTINE 10 MG CARTRIDGE (INHALER) IH PRN ×2 (10:27→21:06)
[2021-04-27] MEDS: MAG HYDROX/AL HYDROX/SIMETH 30 ML UNIT-DOSE CUP PO PRN (16:52)
[2021-04-27] MEDS ORDERED: ATORVASTATIN CA 40 MG TABLET (FP) ONE (18:45)
[2021-04-27] MEDS: ZIPRASIDONE 40 MG CAPSULE PO SCH (21:05)
[2021-04-27] MEDS: QUEtiapine FUMARATE 400 MG TABLET PO SCH (21:06)
[2021-04-27] MEDS: ATORVASTATIN CA 80 MG TABLET (FP) PO SCH (21:06)
[2021-04-27] MEDS: THIAMINE HCL 100 MG TABLET (FP) PO SCH (21:06)
[2021-04-28] MEDS ORDERED: methaDONE HCL 10 MG TABLET ONE (04:01)
[2021-04-28] MEDS ORDERED: methaDONE HCL 40 MG DISPERSABLE TABLET ONE (04:02)
[2021-04-28] MEDS: methaDONE 80 MG, methaDONE 20 MG PO SCH (05:50)
[2021-04-28] MEDS: PRENATAL VITAMINS W/ FOLIC ACID TABLET (FP) PO SCH (09:42)
[2021-04-28] MEDS: ASPIRIN 81 MG CHEWABLE TABLETS PO SCH (09:42)
[2021-04-28] MEDS: NICOTINE 21 MG/24 HOURS TOPICAL PATCH TD SCH (09:43)
[2021-04-28] MEDS: FLUOCINONIDE 0.05% TOP OINT (60 GM TUBE) TP SCH ×2 (09:43→21:11)
[2021-04-28] MEDS: NICOTINE 10 MG CARTRIDGE (INHALER) IH PRN ×2 (09:44→21:11)
[2021-04-28] MEDS: MAGNESIUM HYDROX 2400MG/30ML ORAL SUSPENSION 30 ML CUP PO PRN (14:13)
[2021-04-28] MEDS ORDERED: ATORVASTATIN CA 40 MG TABLET (FP) ONE (18:48)
[2021-04-28] MEDS: MAG HYDROX/AL HYDROX/SIMETH 30 ML UNIT-DOSE CUP PO PRN (20:00)
[2021-04-28] MEDS: ATORVASTATIN CA 80 MG TABLET (FP) PO SCH (21:11)
[2021-04-28] MEDS: THIAMINE HCL 100 MG TABLET (FP) PO SCH (21:11)
[2021-04-28] MEDS: QUEtiapine FUMARATE 400 MG TABLET PO SCH (21:11)
[2021-04-28] MEDS: ZIPRASIDONE 40 MG CAPSULE PO SCH (21:11)
[2021-04-29] MEDS ORDERED: methaDONE HCL 10 MG TABLET ONE (02:59)
[2021-04-29] MEDS ORDERED: methaDONE HCL 40 MG DISPERSABLE TABLET ONE (03:00)
[2021-04-29] MEDS: methaDONE 80 MG, methaDONE 20 MG PO SCH (06:27)
[2021-04-29] MEDS: NICOTINE 21 MG/24 HOURS TOPICAL PATCH TD SCH (09:51)
[2021-04-29] MEDS: ASPIRIN 81 MG CHEWABLE TABLETS PO SCH (09:51)
[2021-04-29] MEDS: PRENATAL VITAMINS W/ FOLIC ACID TABLET (FP) PO SCH (09:51)
[2021-04-29] MEDS: NICOTINE 10 MG CARTRIDGE (INHALER) IH PRN ×2 (09:51→17:01)
[2021-04-29] MEDS: FLUOCINONIDE 0.05% TOP OINT (60 GM TUBE) TP SCH ×2 (09:51→21:27)
[2021-04-29] MEDS ORDERED: ATORVASTATIN CA 40 MG TABLET (FP) ONE (18:30)
[2021-04-29] MEDS: THIAMINE HCL 100 MG TABLET (FP) PO SCH (21:26)
[2021-04-29] MEDS: ZIPRASIDONE 40 MG CAPSULE PO SCH (21:26)
[2021-04-29] MEDS: ATORVASTATIN CA 80 MG TABLET (FP) PO SCH (21:26)
[2021-04-29] MEDS: QUEtiapine FUMARATE 400 MG TABLET PO SCH (21:26)
[2021-04-30] MEDS ORDERED: methaDONE HCL 40 MG DISPERSABLE TABLET ONE (02:50)
[2021-04-30] MEDS ORDERED: methaDONE HCL 10 MG TABLET ONE (02:50)
[2021-04-30] MEDS: methaDONE 80 MG, methaDONE 20 MG PO SCH (06:39)
[2021-04-30] MEDS: MAGNESIUM HYDROX 2400MG/30ML ORAL SUSPENSION 30 ML CUP PO PRN (07:29)
[2021-04-30] MEDS: PRENATAL VITAMINS W/ FOLIC ACID TABLET (FP) PO SCH (09:49)
[2021-04-30] MEDS: ASPIRIN 81 MG CHEWABLE TABLETS PO SCH (09:49)
[2021-04-30] MEDS: NICOTINE 21 MG/24 HOURS TOPICAL PATCH TD SCH (09:50)
[2021-04-30] MEDS: FLUOCINONIDE 0.05% TOP OINT (60 GM TUBE) TP SCH ×2 (09:50→21:09)
[2021-04-30] MEDS: NICOTINE 10 MG CARTRIDGE (INHALER) IH PRN (09:51)
[2021-04-30] MEDS: ZIPRASIDONE 40 MG CAPSULE PO SCH (21:08)
[2021-04-30] MEDS: THIAMINE HCL 100 MG TABLET (FP) PO SCH (21:08)
[2021-04-30] MEDS: QUEtiapine FUMARATE 400 MG TABLET PO SCH (21:08)
[2021-04-30] MEDS: ATORVASTATIN CA 80 MG TABLET (FP) PO SCH (21:08)
[2021-05-01] MEDS ORDERED: methaDONE HCL 40 MG DISPERSABLE TABLET ONE (03:10)
[2021-05-01] MEDS ORDERED: methaDONE HCL 10 MG TABLET ONE (03:10)
[2021-05-01] MEDS: methaDONE 80 MG, methaDONE 20 MG PO SCH (06:03)
[2021-05-01] MEDS: ASPIRIN 81 MG CHEWABLE TABLETS PO SCH (09:58)
[2021-05-01] MEDS: PRENATAL VITAMINS W/ FOLIC ACID TABLET (FP) PO SCH (09:58)
[2021-05-01] MEDS: NICOTINE 21 MG/24 HOURS TOPICAL PATCH TD SCH (09:58)
[2021-05-01] MEDS: FLUOCINONIDE 0.05% TOP OINT (60 GM TUBE) TP SCH ×2 (09:58→21:23)
[2021-05-01] MEDS: NICOTINE 10 MG CARTRIDGE (INHALER) IH PRN ×2 (09:59→21:22)
[2021-05-01] MEDS ORDERED: ATORVASTATIN CA 40 MG TABLET (FP) ONE (18:36)
[2021-05-01] MEDS: THIAMINE HCL 100 MG TABLET (FP) PO SCH (21:22)
[2021-05-01] MEDS: ZIPRASIDONE 40 MG CAPSULE PO SCH (21:22)
[2021-05-01] MEDS: QUEtiapine FUMARATE 400 MG TABLET PO SCH (21:22)
[2021-05-01] MEDS: ATORVASTATIN CA 80 MG TABLET (FP) PO SCH (21:23)
[2021-05-02] MEDS ORDERED: methaDONE HCL 40 MG DISPERSABLE TABLET ONE (03:17)
[2021-05-02] MEDS ORDERED: methaDONE HCL 10 MG TABLET ONE (03:17)
[2021-05-02] MEDS: methaDONE 80 MG, methaDONE 20 MG PO SCH (06:15)
[2021-05-02] MEDS: ASPIRIN 81 MG CHEWABLE TABLETS PO SCH (09:48)
[2021-05-02] MEDS: PRENATAL VITAMINS W/ FOLIC ACID TABLET (FP) PO SCH (09:48)
[2021-05-02] MEDS: NICOTINE 21 MG/24 HOURS TOPICAL PATCH TD SCH (09:48)
[2021-05-02] MEDS: NICOTINE 10 MG CARTRIDGE (INHALER) IH PRN ×2 (09:49→21:07)
[2021-05-02] MEDS: FLUOCINONIDE 0.05% TOP OINT (60 GM TUBE) TP SCH ×2 (09:49→21:07)
[2021-05-02] MEDS ORDERED: ATORVASTATIN CA 40 MG TABLET (FP) ONE (18:50)
[2021-05-02] MEDS: THIAMINE HCL 100 MG TABLET (FP) PO SCH (21:06)
[2021-05-02] MEDS: ATORVASTATIN CA 80 MG TABLET (FP) PO SCH (21:06)
[2021-05-02] MEDS: QUEtiapine FUMARATE 400 MG TABLET PO SCH (21:06)
[2021-05-02] MEDS: ZIPRASIDONE 40 MG CAPSULE PO SCH (21:06)
[2021-05-03] MEDS ORDERED: methaDONE HCL 10 MG TABLET ONE (03:12)
[2021-05-03] MEDS ORDERED: methaDONE HCL 40 MG DISPERSABLE TABLET ONE (03:13)
[2021-05-03] MEDS: methaDONE 80 MG, methaDONE 20 MG PO SCH (06:04)
[2021-05-03 06:50] VITALS: BP 112/74; PULSE 84; TEMP 97.9
[2021-05-03] MEDS: NICOTINE 10 MG CARTRIDGE (INHALER) IH PRN (08:41)
[2021-05-03] MEDS: PRENATAL VITAMINS W/ FOLIC ACID TABLET (FP) PO SCH (10:11)
[2021-05-03] MEDS: ASPIRIN 81 MG CHEWABLE TABLETS PO SCH (10:11)
[2021-05-03] MEDS: NICOTINE 21 MG/24 HOURS TOPICAL PATCH TD SCH (10:11)
[2021-05-03] MEDS: FLUOCINONIDE 0.05% TOP OINT (60 GM TUBE) TP SCH (10:12)
== END 2021-05-03 10:24 | disposition home or self-care (01) | DRG 772 ==
LOC: YASAS 14:18 → Y3W 20:18
PROVIDERS: ADMIT Allergy & Immunology; ATTEND Allergy & Immunology
PROC: HZ42ZZZ Group Counseling for Substance Abuse Treatment, Cognitive-Behavioral (ICD-10-PCS; principal; 2021-04-18)
DX: F11.20 Opioid dependence, uncomplicated (principal); F10.20 Alcohol dependence, uncomplicated; F14.20 Cocaine dependence, uncomplicated; F13.20 Sedative, hypnotic or anxiolytic dependence, uncomplicated; F17.210 Nicotine dependence, cigarettes, uncomplicated; F31.9 Bipolar disorder, unspecified; F41.8 Other specified anxiety disorders; E78.5 Hyperlipidemia, unspecified; I10 Essential (primary) hypertension; I83.91 Asymptomatic varicose veins of right lower extremity; E11.9 Type 2 diabetes mellitus without complications; Z79.84 Long term (current) use of oral hypoglycemic drugs; E66.9 Obesity, unspecified; Z68.34 Body mass index [BMI] 34.0-34.9, adult; R21 Rash and other nonspecific skin eruption; Z86.73 Personal history of transient ischemic attack (TIA), and cerebral infarction without residual deficits; Z91.018 Allergy to other foods
CPT/HCPCS: 36415; 80053; 81003; 82962; 85027; 86780; 86803; 87811; C9803; U0003; U0005

== ENCOUNTER 2022-06-10 12:42 | Inpatient (IN) | payer OTHER ==
[2022-06-10 13:22] VITALS: BMI 32.3
[2022-06-10] MEDS ORDERED: hydrOXYzine PAMOATE 25 MG CAPSULE (FP) PO PRN (13:42)
[2022-06-10] MEDS ORDERED: BENZONATATE 200 MG CAPSULE PO PRN (13:42)
[2022-06-10] MEDS ORDERED: BENZOCAINE/MENTHOL (CHLORASEPTIC ) LOZENGE MM PRN (13:42)
[2022-06-10] MEDS ORDERED: IBUPROFEN 600 MG TABLET (FP) PO PRN (13:42)
[2022-06-10] MEDS ORDERED: NALOXONE HCL 0.4 MG/ML VIAL IM PRN (13:42)
[2022-06-10] MEDS ORDERED: LOPERAMIDE HCL 2 MG CAPSULE PO PRN (13:42)
[2022-06-10] MEDS ORDERED: MAG HYDROX/AL HYDROX/SIMETH 30 ML UNIT-DOSE CUP PO PRN (13:42)
[2022-06-10] MEDS ORDERED: ACETAMINOPHEN 325 MG TABLET (FP) PO PRN (13:42)
[2022-06-10] MEDS ORDERED: NALOXONE HCL (KLOXXADO) 8 MG SPRAY NS PRN (13:42)
[2022-06-10] MEDS ORDERED: MAGNESIUM HYDROX 2400MG/30ML ORAL SUSPENSION 30 ML CUP PO PRN (13:42)
[2022-06-10] MEDS ORDERED: NICOTINE POLACRILEX 4 MG GUM BUC PRN (13:42)
[2022-06-10] MEDS ORDERED: guaiFENesin 600 MG TABLET.ER (FP) PO PRN (13:42)
[2022-06-10] MEDS ORDERED: IBUPROFEN 400 MG TABLET (FP) PO PRN (13:42)
[2022-06-10] MEDS ORDERED: POLYETHYLENE GLYCOL (HEALTHYLAX) 3350 17 GM PACKET PO PRN (13:42)
[2022-06-10] MEDS: THIAMINE HCL 100 MG TABLET (FP) PO SCH (21:23)
[2022-06-10] MEDS: MELATONIN 5 MG TABLETS PO SCH (21:23)
[2022-06-11] MEDS: NICOTINE 10 MG CARTRIDGE (INHALER) IH PRN ×2 (06:35→11:20)
[2022-06-11] MEDS ORDERED: methaDONE HCL 40 MG DISPERSABLE TABLET PO ONE (09:53)
[2022-06-11] MEDS: PRENATAL VITAMINS W/ FOLIC ACID TABLET (FP) PO SCH (10:03)
[2022-06-11] MEDS: ASPIRIN 81 MG CHEWABLE TABLETS PO SCH (10:03)
[2022-06-11] MEDS ORDERED: BENZTROPINE MESYLATE 1 MG TABLET PO STA (10:29)
[2022-06-11] MEDS: ZIPRASIDONE 40 MG CAPSULE PO SCH (11:19)
[2022-06-11 11:53] LABS: HEMATOCRIT 43.8 % (35.4-49); HEMOGLOBIN 14.4 GM/dL (11.7-16.9); MCH 27.9 pg (25.7-33.7); MCHC 32.9 g/dl (32.0-35.9); MEAN CELL VOLUME 84.6 fl (80-96); MEAN PLT VOLUME 8.1 fl (7.5-11.1); PLATELET COUNT 340 10^3/uL (134-434); RBC 5.17 M/mm3 (4.00-5.60); RDW 15.2 % (11.9-15.9); WHITE BLOOD COUNT 8.2 K/mm3 (4.0-10.0)
[2022-06-11 11:54] LABS: CALCIUM 9.3 mg/dL (8.5-10.1)
[2022-06-11 11:55] LABS: ALBUMIN 3.3 g/dl (3.4-5.0)
[2022-06-11 11:58] LABS: CREATININE 0.7 mg/dL (0.55-1.3)
[2022-06-11 11:59] LABS: BILIRUBIN,TOTAL 0.2 mg/dL (0.2-1)
[2022-06-11 12:00] LABS: TOT PROT 8.1 g/dl (6.4-8.2)
[2022-06-11 12:50] LABS: SYPHILIS W/ RPR CONF NON-REACTIVE (NONREACTIVE)
[2022-06-11 21:02] LABS: URINE APPEARANCE CLEAR; URINE BILIRUBIN NEGATIVE (NEGATIVE); URINE COLOR YELLOW; URINE GLUCOSE (UA) NEGATIVE (NEGATIVE); URINE KETONE NEGATIVE (NEGATIVE); URINE LEUK ESTERASE NEGATIVE (NEGATIVE); URINE NITRITE NEGATIVE (NEGATIVE); URINE PROTEIN NEGATIVE (NEGATIVE); URINE UROBILINOGEN 0.2 mg/dL (0.2-1.0)
[2022-06-11] MEDS: QUETIAPINE FUMARATE PO SCH (21:28)
[2022-06-11] MEDS: MELATONIN 5 MG TABLETS PO SCH (21:29)
[2022-06-11] MEDS: BENZTROPINE MESYLATE 1 MG TABLET PO SCH (21:29)
[2022-06-11] MEDS: THIAMINE HCL 100 MG TABLET (FP) PO SCH (21:29)
[2022-06-11] MEDS ORDERED: QUEtiapine FUMARATE 400 MG TABLET PO SCH (22:00)
[2022-06-12] MEDS: methaDONE HCL 40 MG DISPERSABLE TABLET PO SCH (05:54)
[2022-06-12] MEDS: ZIPRASIDONE 40 MG CAPSULE PO SCH (09:44)
[2022-06-12] MEDS: PRENATAL VITAMINS W/ FOLIC ACID TABLET (FP) PO SCH (09:44)
[2022-06-12] MEDS: BENZTROPINE MESYLATE 1 MG TABLET PO SCH ×2 (09:44→21:29)
[2022-06-12] MEDS: ASPIRIN 81 MG CHEWABLE TABLETS PO SCH (09:44)
[2022-06-12] MEDS: MELATONIN 5 MG TABLETS PO SCH (21:29)
[2022-06-12] MEDS: THIAMINE HCL 100 MG TABLET (FP) PO SCH (21:29)
[2022-06-12] MEDS: QUETIAPINE FUMARATE PO SCH (21:29)
[2022-06-12] MEDS: NICOTINE 10 MG CARTRIDGE (INHALER) IH PRN (21:35)
[2022-06-13] MEDS: methaDONE HCL 40 MG DISPERSABLE TABLET PO SCH (06:06)
[2022-06-13] MEDS: NICOTINE 10 MG CARTRIDGE (INHALER) IH PRN ×2 (06:24→21:32)
[2022-06-13] MEDS: PRENATAL VITAMINS W/ FOLIC ACID TABLET (FP) PO SCH (10:05)
[2022-06-13] MEDS: BENZTROPINE MESYLATE 1 MG TABLET PO SCH (10:06)
[2022-06-13] MEDS: ZIPRASIDONE 40 MG CAPSULE PO SCH (10:06)
[2022-06-13] MEDS: ASPIRIN 81 MG CHEWABLE TABLETS PO SCH (10:06)
[2022-06-13] MEDS: THIAMINE HCL 100 MG TABLET (FP) PO SCH (21:34)
[2022-06-13] MEDS ORDERED: QUEtiapine FUMARATE 100 MG TABLET (FP) PO SCH (22:00)
[2022-06-14] MEDS: methaDONE HCL 40 MG DISPERSABLE TABLET PO SCH (06:08)
[2022-06-14] MEDS: NICOTINE 10 MG CARTRIDGE (INHALER) IH PRN ×3 (06:38→22:39)
[2022-06-14] MEDS: ASPIRIN 81 MG CHEWABLE TABLETS PO SCH (09:47)
[2022-06-14] MEDS: PRENATAL VITAMINS W/ FOLIC ACID TABLET (FP) PO SCH (09:47)
[2022-06-14] MEDS ORDERED: ZIPRASIDONE 20 MG CAPSULE PO SCH (10:15)
[2022-06-14] MEDS: QUEtiapine FUMARATE 100 MG TABLET (FP) PO SCH (21:29)
[2022-06-14] MEDS: THIAMINE HCL 100 MG TABLET (FP) PO SCH (21:29)
[2022-06-15] MEDS: methaDONE HCL 40 MG DISPERSABLE TABLET PO SCH (06:14)
[2022-06-15] MEDS ORDERED: ZIPRASIDONE 20 MG CAPSULE PO SCH (10:00)
[2022-06-15] MEDS: PRENATAL VITAMINS W/ FOLIC ACID TABLET (FP) PO SCH (10:00)
[2022-06-15] MEDS: ASPIRIN 81 MG CHEWABLE TABLETS PO SCH (10:02)
[2022-06-15] MEDS: ZIPRASIDONE 20 MG CAPSULE PO SCH (11:38)
[2022-06-15] MEDS: NICOTINE 10 MG CARTRIDGE (INHALER) IH PRN ×3 (12:58→21:25)
[2022-06-15] MEDS: QUEtiapine FUMARATE 100 MG TABLET (FP) PO SCH (21:24)
[2022-06-15] MEDS: THIAMINE HCL 100 MG TABLET (FP) PO SCH (21:25)
[2022-06-16] MEDS: methaDONE HCL 40 MG DISPERSABLE TABLET PO SCH (06:08)
[2022-06-16] MEDS: NICOTINE 10 MG CARTRIDGE (INHALER) IH PRN ×3 (06:09→21:13)
[2022-06-16] MEDS: PRENATAL VITAMINS W/ FOLIC ACID TABLET (FP) PO SCH (09:55)
[2022-06-16] MEDS: ZIPRASIDONE 20 MG CAPSULE PO SCH (09:56)
[2022-06-16] MEDS: ASPIRIN 81 MG CHEWABLE TABLETS PO SCH (09:56)
[2022-06-16] MEDS: NICOTINE 21 MG/24 HOURS TOPICAL PATCH TD PRN (09:57)
[2022-06-16] MEDS: THIAMINE HCL 100 MG TABLET (FP) PO SCH (21:12)
[2022-06-16] MEDS: QUEtiapine FUMARATE 100 MG TABLET (FP) PO SCH (21:12)
[2022-06-17] MEDS: methaDONE HCL 40 MG DISPERSABLE TABLET PO SCH (05:58)
[2022-06-17] MEDS: NICOTINE 10 MG CARTRIDGE (INHALER) IH PRN ×2 (07:08→21:28)
[2022-06-17] MEDS: PRENATAL VITAMINS W/ FOLIC ACID TABLET (FP) PO SCH (09:51)
[2022-06-17] MEDS: ASPIRIN 81 MG CHEWABLE TABLETS PO SCH (09:51)
[2022-06-17] MEDS: ZIPRASIDONE 20 MG CAPSULE PO SCH (09:52)
[2022-06-17] MEDS: NICOTINE 21 MG/24 HOURS TOPICAL PATCH TD PRN (09:53)
[2022-06-17] MEDS: THIAMINE HCL 100 MG TABLET (FP) PO SCH (21:29)
[2022-06-17] MEDS: QUEtiapine FUMARATE 100 MG TABLET (FP) PO SCH (21:29)
[2022-06-17] MEDS: ALBUTEROL SO4 HFA INHALER IH PRN (21:30)
[2022-06-18] MEDS: NICOTINE 10 MG CARTRIDGE (INHALER) IH PRN ×3 (06:02→21:22)
[2022-06-18] MEDS: methaDONE HCL 40 MG DISPERSABLE TABLET PO SCH (06:02)
[2022-06-18] MEDS: PRENATAL VITAMINS W/ FOLIC ACID TABLET (FP) PO SCH (09:54)
[2022-06-18] MEDS: ZIPRASIDONE 20 MG CAPSULE PO SCH (09:54)
[2022-06-18] MEDS: ASPIRIN 81 MG CHEWABLE TABLETS PO SCH (09:54)
[2022-06-18] MEDS: NICOTINE 21 MG/24 HOURS TOPICAL PATCH TD PRN (09:54)
[2022-06-18] MEDS: THIAMINE HCL 100 MG TABLET (FP) PO SCH (21:22)
[2022-06-18] MEDS: QUEtiapine FUMARATE 100 MG TABLET (FP) PO SCH (21:22)
[2022-06-18] MEDS: ALBUTEROL SO4 HFA INHALER IH PRN (21:22)
[2022-06-19] MEDS: methaDONE HCL 40 MG DISPERSABLE TABLET PO SCH (06:00)
[2022-06-19] MEDS: NICOTINE 10 MG CARTRIDGE (INHALER) IH PRN ×3 (06:02→14:15)
[2022-06-19] MEDS: PRENATAL VITAMINS W/ FOLIC ACID TABLET (FP) PO SCH (10:07)
[2022-06-19] MEDS: ASPIRIN 81 MG CHEWABLE TABLETS PO SCH (10:07)
[2022-06-19] MEDS: ZIPRASIDONE 20 MG CAPSULE PO SCH (10:08)
[2022-06-19] MEDS: NICOTINE 21 MG/24 HOURS TOPICAL PATCH TD PRN (10:08)
[2022-06-19] MEDS: BENZTROPINE MESYLATE 1 MG TABLET PO SCH (15:33)
[2022-06-19] MEDS: QUEtiapine FUMARATE 100 MG TABLET (FP) PO SCH (21:16)
[2022-06-19] MEDS: THIAMINE HCL 100 MG TABLET (FP) PO SCH (21:16)
[2022-06-19] MEDS: ALBUTEROL SO4 HFA INHALER IH PRN (21:16)
[2022-06-19] MEDS ORDERED: BENZTROPINE MESYLATE 1 MG TABLET PO SCH (22:00)
[2022-06-20] MEDS: methaDONE HCL 40 MG DISPERSABLE TABLET PO SCH (06:02)
[2022-06-20] MEDS: NICOTINE 10 MG CARTRIDGE (INHALER) IH PRN ×2 (06:02→21:18)
[2022-06-20] MEDS: ASPIRIN 81 MG CHEWABLE TABLETS PO SCH (09:11)
[2022-06-20] MEDS: BENZTROPINE MESYLATE 1 MG TABLET PO SCH (09:11)
[2022-06-20] MEDS: ZIPRASIDONE 20 MG CAPSULE PO SCH (09:12)
[2022-06-20] MEDS: PRENATAL VITAMINS W/ FOLIC ACID TABLET (FP) PO SCH (09:13)
[2022-06-20] MEDS: THIAMINE HCL 100 MG TABLET (FP) PO SCH (21:16)
[2022-06-20] MEDS: QUEtiapine FUMARATE 100 MG TABLET (FP) PO SCH (21:16)
[2022-06-20] MEDS: FLUOCINONIDE 0.05% CREAM (60 GM TUBE) TP SCH (21:17)
[2022-06-21] MEDS: methaDONE HCL 40 MG DISPERSABLE TABLET PO SCH (06:07)
[2022-06-21] MEDS: NICOTINE 10 MG CARTRIDGE (INHALER) IH PRN ×3 (06:07→21:15)
[2022-06-21 07:14] VITALS: RESP 18
[2022-06-21] MEDS: ZIPRASIDONE 20 MG CAPSULE PO SCH (09:58)
[2022-06-21] MEDS: FLUOCINONIDE 0.05% CREAM (60 GM TUBE) TP SCH ×2 (09:58→21:15)
[2022-06-21] MEDS: BENZTROPINE MESYLATE 1 MG TABLET PO SCH (09:58)
[2022-06-21] MEDS: ASPIRIN 81 MG CHEWABLE TABLETS PO SCH (09:58)
[2022-06-21] MEDS: PRENATAL VITAMINS W/ FOLIC ACID TABLET (FP) PO SCH (09:58)
[2022-06-21] MEDS: QUEtiapine FUMARATE 100 MG TABLET (FP) PO SCH (21:14)
[2022-06-21] MEDS: THIAMINE HCL 100 MG TABLET (FP) PO SCH (21:14)
[2022-06-22] MEDS: methaDONE HCL 40 MG DISPERSABLE TABLET PO SCH (06:23)
[2022-06-22] MEDS: NICOTINE 10 MG CARTRIDGE (INHALER) IH PRN ×3 (06:24→21:38)
[2022-06-22] MEDS: ASPIRIN 81 MG CHEWABLE TABLETS PO SCH (10:01)
[2022-06-22] MEDS: BENZTROPINE MESYLATE 1 MG TABLET PO SCH (10:01)
[2022-06-22] MEDS: PRENATAL VITAMINS W/ FOLIC ACID TABLET (FP) PO SCH (10:01)
[2022-06-22] MEDS: FLUOCINONIDE 0.05% CREAM (60 GM TUBE) TP SCH ×2 (10:02→21:56)
[2022-06-22] MEDS: ZIPRASIDONE 20 MG CAPSULE PO SCH (10:02)
[2022-06-22] MEDS: THIAMINE HCL 100 MG TABLET (FP) PO SCH (21:38)
[2022-06-22] MEDS: QUEtiapine FUMARATE 100 MG TABLET (FP) PO SCH (21:38)
[2022-06-23] MEDS: methaDONE HCL 40 MG DISPERSABLE TABLET PO SCH (05:52)
[2022-06-23] MEDS: NICOTINE 10 MG CARTRIDGE (INHALER) IH PRN ×3 (07:18→21:13)
[2022-06-23] MEDS: PRENATAL VITAMINS W/ FOLIC ACID TABLET (FP) PO SCH (09:53)
[2022-06-23] MEDS: FLUOCINONIDE 0.05% CREAM (60 GM TUBE) TP SCH ×2 (09:54→21:14)
[2022-06-23] MEDS: ASPIRIN 81 MG CHEWABLE TABLETS PO SCH (09:54)
[2022-06-23] MEDS: BENZTROPINE MESYLATE 1 MG TABLET PO SCH (09:54)
[2022-06-23] MEDS: ZIPRASIDONE 20 MG CAPSULE PO SCH (09:55)
[2022-06-23] MEDS: THIAMINE HCL 100 MG TABLET (FP) PO SCH (21:13)
[2022-06-23] MEDS: QUEtiapine FUMARATE 100 MG TABLET (FP) PO SCH (21:13)
[2022-06-24] MEDS: methaDONE HCL 40 MG DISPERSABLE TABLET PO SCH (06:06)
[2022-06-24] MEDS: NICOTINE 10 MG CARTRIDGE (INHALER) IH PRN (06:07)
[2022-06-24 06:23] VITALS: BP 124/65; PULSE 65; TEMP 97.4
[2022-06-24] MEDS: BENZTROPINE MESYLATE 1 MG TABLET PO SCH (09:29)
[2022-06-24] MEDS: ASPIRIN 81 MG CHEWABLE TABLETS PO SCH (09:29)
[2022-06-24] MEDS: ZIPRASIDONE 20 MG CAPSULE PO SCH (09:29)
[2022-06-24] MEDS: FLUOCINONIDE 0.05% CREAM (60 GM TUBE) TP SCH (09:30)
[2022-06-24] MEDS: PRENATAL VITAMINS W/ FOLIC ACID TABLET (FP) PO SCH (09:30)
== END 2022-06-24 10:00 | disposition home or self-care (01) | DRG 772 ==
LOC: YASAS 12:42 → Y5N 16:42
PROVIDERS: ADMIT Allergy & Immunology; ATTEND Psychiatry & Neurology Pain Medicine
PROC: HZ42ZZZ Group Counseling for Substance Abuse Treatment, Cognitive-Behavioral (ICD-10-PCS; principal; 2022-06-10)
DX: F14.20 Cocaine dependence, uncomplicated (principal); F11.20 Opioid dependence, uncomplicated; F17.210 Nicotine dependence, cigarettes, uncomplicated; F20.9 Schizophrenia, unspecified; F31.9 Bipolar disorder, unspecified; G40.909 Epilepsy, unspecified, not intractable, without status epilepticus; E11.9 Type 2 diabetes mellitus without complications; I10 Essential (primary) hypertension; I83.91 Asymptomatic varicose veins of right lower extremity; L30.9 Dermatitis, unspecified; E66.9 Obesity, unspecified; Z68.32 Body mass index [BMI] 32.0-32.9, adult; Z86.59 Personal history of other mental and behavioral disorders
CPT/HCPCS: 36415; 80053; 81003; 85027; 86780; 86803; 87811; C9803-CS; U0003; U0005